=== PATIENT | male | born 1950 | race Caucasian/White ===

== ENCOUNTER 2018-07-07 12:33 | Outpatient (CLI) | payer MEDICARE, OTHER ==
[2018-07-07 18:50] LABS: HB2 TOTAL 18.6 g/dL; HEMOGLOBIN A1C 1.07 g/dL; HEMOGLOBIN A1C % 7.4 % (4.6-6.2)
[2018-07-07 18:52] LABS: CREATININE 0.9 mg/dL (0.6-1.2)
[2018-07-07 18:55] LABS: CREATININE,URINE 143.3 mg/dL; MICROALBUM/CREATININE RATIO,UR 38.4 ug/mg (<30.0); MICROALBUMIN,URINE 5.5 mg/dL (0-300.0)
== END 2018-07-07 23:59 | disposition home or self-care (01) ==
LOC: LAB.F 12:33
PROVIDERS: ATTEND Physician Assistant Medical
DX: E11.9 Type 2 diabetes mellitus without complications (principal)
CPT/HCPCS: 36415; 80048; 82043; 82570; 83036

== ENCOUNTER 2018-08-31 14:39 | Outpatient (CLI) | payer MEDICARE, OTHER ==
--- NOTE | 2018-08-31 16:05 | XRAY Report ---
Reason: FATIGUE,DIZZINESS,EXERTIONAL SHORTNESS OF BREATH Procedure Date: 08/31/2018 Accession Number: [id number] / [id number] Procedure: XR - Chest 2 View X-Ray CPT Code: 96947 FULL RESULT: EXAM: CHEST RADIOGRAPHY EXAM DATE: 08/31/2018 02:49 PM. CLINICAL HISTORY: FATIGUE,DIZZINESS,EXERTIONAL SHORTNESS OF BREATH. COMPARISON: None. TECHNIQUE: 2 views. FINDINGS: Lungs/Pleura: No focal opacities evident. No pleural effusion. No pneumothorax. Normal volumes. Mediastinum: Heart and mediastinal contour are within normal limits for size, subtle calcifications of the aorta noted. Other: None. IMPRESSION: No pulmonary edema or acute air space disease are detected. RADIA
== END 2018-08-31 14:40 | disposition home or self-care (01) ==
LOC: DI 14:39
PROVIDERS: ATTEND Physician Assistant Medical
DX: R53.83 Other fatigue (principal); R42 Dizziness and giddiness; R06.02 Shortness of breath
CPT/HCPCS: 36415; 71046; 80053; 84443; 84484; 85379

== ENCOUNTER 2018-08-31 14:51 | Outpatient (CLI) | payer MEDICARE, OTHER ==
[2018-08-31 15:26] LABS: ALBUMIN 4.2 g/dL (3.2-5.5); ALBUMIN/GLOBULIN RATIO 1.3 (1.0-2.2); BILIRUBIN,TOTAL 0.7 mg/dL (0.2-1.0); CREATININE 1.1 mg/dL (0.6-1.2); TOTAL PROTEIN 7.5 g/dL (6.7-8.2)
== END 2018-08-31 14:52 | disposition home or self-care (01) ==
LOC: LAB 14:51
PROVIDERS: ATTEND Physician Assistant Medical
DX: R53.83 Other fatigue (principal); R42 Dizziness and giddiness; R06.02 Shortness of breath
CPT/HCPCS: 36415; 80053; 84443; 84484; 85379

== ENCOUNTER 2018-10-14 08:00 | Outpatient (CLI) | payer MEDICARE, OTHER ==
[2018-10-14 19:58] LABS: HB2 TOTAL 16.8 g/dL; HEMOGLOBIN A1C 0.86 g/dL; HEMOGLOBIN A1C % 6.8 % (4.6-6.2)
== END 2018-10-14 23:59 | disposition home or self-care (01) ==
LOC: LAB.F 08:00
PROVIDERS: ATTEND Physician Assistant Medical
DX: E11.9 Type 2 diabetes mellitus without complications (principal)
CPT/HCPCS: 36415; 83036

== ENCOUNTER 2019-01-31 13:35 | Outpatient (CLI) | payer MEDICARE, OTHER ==
[2019-01-31 18:27] LABS: HB2 TOTAL 17.2 g/dL; HEMOGLOBIN A1C 0.83 g/dL; HEMOGLOBIN A1C % 6.6 % (4.6-6.2)
--- NOTE | 2019-02-01 16:34 | XRAY Report ---
Reason: COUGH, R05 Procedure Date: 01/31/2019 Accession Number: [id number] / [id number] Procedure: XRS - Chest 2 View X-Ray CPT Code: 63695 FULL RESULT: EXAM: CHEST RADIOGRAPHY 2 VIEWS EXAM DATE: 01/31/2019. CLINICAL HISTORY: Cough. COMPARISON: PA and lateral chest on 08/31/2018. TECHNIQUE: PA and lateral views. FINDINGS: Lungs/Pleura: Normal vasculature. The lungs are clear. No pleural fluid or pneumothorax. Mediastinum: Normal cardiac and mediastinal contours. Bones: Mild degenerative changes of the spine. IMPRESSION: Normal examination. No change from 08/31/2018. RADIA
== END 2019-01-31 13:36 | disposition home or self-care (01) ==
LOC: DI.S 13:35
PROVIDERS: ATTEND Physician Assistant Medical
DX: R05 Cough (principal); E11.9 Type 2 diabetes mellitus without complications
CPT/HCPCS: 36415; 71046; 83036

== ENCOUNTER 2019-04-04 07:58 | Outpatient (CLI) | payer MEDICARE, OTHER ==
--- NOTE | 2019-04-04 12:16 | MRI Report ---
Reason: SHOULDER JOINT PAIN RT Procedure Date: 04/04/2019 Accession Number: [id number] / [id number] Procedure: MRI - Shoulder RT W/O CPT Code: Final Report FULL RESULT: EXAM: RIGHT SHOULDER MRI WITHOUT CONTRAST EXAM DATE: 04/04/2019 08:05 AM. CLINICAL HISTORY: Shoulder joint pain right. COMPARISON: Radiographs 03/28/2019. TECHNIQUE: Multiplanar, multisequence T1-weighted and fluid-sensitive sequences of the shoulder without contrast. Other: None. FINDINGS: Evaluation mildly limited by patient motion and artifact. Acromioclavicular Region: The acromion is type II with bone marrow edema at the undersurface. Mild degenerative change with inferiorly directed osteophytes. The coracoacromial and coracoclavicular ligaments are intact. Moderate heterogeneous subacromial/subdeltoid bursal fluid. Glenohumeral Region: Superior subluxation of the humeral head abutting the acromion. Small joint effusion with synovitis. Diffuse deep partial thickness cartilage loss. Ill-defined edema in the joint capsule. Bone Marrow: No fracture or bone lesion. Labrum: Degenerative fraying throughout with deep partial to full-thickness tear through the free edge posterior superior aspect and partial thickness tears posterior inferior and anterior inferior aspects. Musculature/Rotator Cuff: Full-thickness nearly full width tear supraspinatus tendon. A few fibers anteriorly may remain intact. Free end of the torn fibers at the glenoid, 5 cm from the insertion. Full-thickness nearly full-width tear infraspinatus tendon. A few fibers posteriorly may remain intact. Mild edema in the teres minor tendon. Diffuse deep partial thickness undersurface tear subscapularis tendon measuring 2.3 cm craniocaudal by 2.8 cm transverse. 0.7 cm old ossific fragment in the retracted central fibers. Mild to moderate fatty atrophy supraspinatus, infraspinatus, and subscapularis muscles with associated edema. Mild edema in the teres minor and deltoid muscles. Biceps Tendon: No discernible intact fibers. Other: The subcutaneous tissues are unremarkable. IMPRESSION: 1. Full-thickness nearly full-width tear supraspinatus and infraspinatus tendons with grade 2-3 muscle atrophy. 2. Diffuse deep partial thickness undersurface tear subscapularis tendon with grade 2-3 muscle atrophy. 3. Mild reactive edema and/or strain teres minor tendon and muscle. 4. Complete rupture of the biceps tendon. 5. Degenerative fraying and tearing of the labrum. 6. Mild glenohumeral degenerative change with small joint effusion and synovitis. 7. Moderate subacromial-subdeltoid bursitis. 8. Mild acromioclavicular degenerative change. RADIA
== END 2019-04-04 07:59 | disposition home or self-care (01) ==
LOC: DI 07:58
PROVIDERS: ATTEND Orthopaedic Surgery Sports Medicine
DX: M75.101 Unspecified rotator cuff tear or rupture of right shoulder, not specified as traumatic (principal); R60.0 Localized edema; S46.211A Strain of muscle, fascia and tendon of other parts of biceps, right arm, initial encounter; M19.011 Primary osteoarthritis, right shoulder; M75.51 Bursitis of right shoulder

== ENCOUNTER 2019-04-13 07:03 | Outpatient (CLI) | payer MEDICARE, OTHER ==
[2019-04-13 10:11] LABS: BASOPHILS # (AUTO) 0.1 10^3/uL (0.0-0.1); BASOPHILS % (AUTO) 0.5 %; EOSINOPHILS # (AUTO) 0.2 10^3/uL (0.0-0.7); EOSINOPHILS % (AUTO) 2.2 %; HGB - HEMOGLOBIN 16.7 g/dL (14.0-18.0); LYMPHOCYTES # (AUTO) 2.2 10^3/uL (1.5-3.5); LYMPHOCYTES % (AUTO) 23.5 %; MEAN CORPUSCULAR HEMOGLOBIN 33.1 pg (27.0-31.0); MEAN CORPUSCULAR HGB CONC 32.6 g/dL (32.0-36.0); MEAN CORPUSCULAR VOLUME 101.4 fL (80.0-94.0); MONOCYTES # (AUTO) 0.8 10^3/uL (0.0-1.0); MONOCYTES % (AUTO) 8.2 %; NEUTROPHILS # (AUTO) 6.1 10^3/uL (1.5-6.6); NEUTROPHILS % (AUTO) 65.1 %; PLT - PLATELET COUNT 273 10^3/uL (130-450); RED BLOOD COUNT 5.05 10^6/uL (4.70-6.10); RED CELL DISTRIBUTION WIDTH 13.2 % (12.0-15.0); WHITE BLOOD COUNT 9.4 x10^3/uL (4.8-10.8)
[2019-04-13 10:28] LABS: ALBUMIN 4.2 g/dL (3.2-5.5); ALBUMIN/GLOBULIN RATIO 1.2 (1.0-2.2); BILIRUBIN,TOTAL 0.8 mg/dL (0.2-1.0); CALCIUM 9.5 mg/dL (8.5-10.3); TOTAL PROTEIN 7.8 g/dL (6.7-8.2)
[2019-04-13 10:30] LABS: CREATININE,URINE 117.3 mg/dL; MICROALBUM/CREATININE RATIO,UR 34.1 ug/mg (<30.0)
[2019-04-13 10:36] LABS: HEMOGLOBIN A1C 0.91 g/dL
== END 2019-04-13 07:04 | disposition home or self-care (01) ==
LOC: LAB.S 07:03
PROVIDERS: ATTEND Physician Assistant Medical
DX: I10 Essential (primary) hypertension (principal); E11.9 Type 2 diabetes mellitus without complications
CPT/HCPCS: 36415; 80053; 82043; 82570; 83036; 85025

== ENCOUNTER 2019-05-06 06:58 | Outpatient (CLI) | payer MEDICARE, OTHER ==
[2019-05-06 09:58] LABS: BASOPHILS # (AUTO) 0.1 10^3/uL (0.0-0.1); BASOPHILS % (AUTO) 0.5 %; EOSINOPHILS # (AUTO) 0.2 10^3/uL (0.0-0.7); HGB - HEMOGLOBIN 16.2 g/dL (14.0-18.0); LYMPHOCYTES # (AUTO) 1.9 10^3/uL (1.5-3.5); LYMPHOCYTES % (AUTO) 19.1 %; MEAN CORPUSCULAR HEMOGLOBIN 33.9 pg (27.0-31.0); MEAN CORPUSCULAR HGB CONC 33.3 g/dL (32.0-36.0); MEAN CORPUSCULAR VOLUME 101.9 fL (80.0-94.0); MEAN PLATELET VOLUME 10.7 fL (7.4-11.4); MONOCYTES # (AUTO) 0.8 10^3/uL (0.0-1.0); MONOCYTES % (AUTO) 7.9 %; NEUTROPHILS # (AUTO) 6.9 10^3/uL (1.5-6.6); NEUTROPHILS % (AUTO) 70.2 %; PLT - PLATELET COUNT 309 10^3/uL (130-450); RED BLOOD COUNT 4.78 10^6/uL (4.70-6.10); RED CELL DISTRIBUTION WIDTH 12.9 % (12.0-15.0); WHITE BLOOD COUNT 9.8 x10^3/uL (4.8-10.8)
[2019-05-06 10:15] LABS: ALBUMIN 4.1 g/dL (3.2-5.5); ALBUMIN/GLOBULIN RATIO 1.2 (1.0-2.2); BILIRUBIN,TOTAL 0.8 mg/dL (0.2-1.0); CALCIUM 9.8 mg/dL (8.5-10.3); TOTAL PROTEIN 7.4 g/dL (6.7-8.2)
== END 2019-05-06 06:59 | disposition home or self-care (01) ==
LOC: LAB.S 06:58
PROVIDERS: ATTEND Physician Assistant Medical
DX: I10 Essential (primary) hypertension (principal)
CPT/HCPCS: 36415; 80053; 85025

== ENCOUNTER 2019-05-18 10:46 | Inpatient (IN) | payer MEDICARE, OTHER ==
[2019-05-18] MEDS ORDERED: CEFAZOLIN SODIUM IN 0.9 % NACL 2 GM/100 ML BAG IV ONE (10:59)
[2019-05-18] MEDS ORDERED: LACTATED RINGERS 1,000 ML IV ONE (11:04)
--- NOTE | 2019-05-18 11:46 | ANESTHESIA ---
Pre-Anesthesia VS, & Labs - Diagnosis right shoulder rotator cuff tear - Procedure right shoulder arthroscpic vs open rotator cuff repair possible biceps tenodesis Vital Signs: Temp Pulse Resp BP Pulse Ox 36.5 C 86 18 157/85 H 99 05/18/19 11:08 05/18/19 11:08 05/18/19 11:08 05/18/19 11:08 05/18/19 11:08 Height 5 ft 9 in Weight (kg) 94.9 kg - NPO >8 hours Last Fluid Intake: 0830: 2 oz apple juice - Lab Results Current Lab Results: Laboratory Tests 05/18/19 11:24: POC Whole Bld Glucose 148 H Lab results reviewed: Yes Home Medications and Allergies Home Medications: Ambulatory Orders Betamethasone Dipropionate 1 applic TP BID PRN 05/09/19 Econazole Nitrate 1 applic TOP DAILY PRN 05/09/19 Insulin Glargine [Lantus Solostar] 40 unit SQ DAILY 05/09/19 Insulin Lispro [Humalog Kwikpen U-100] 25 unit SUBQ AC 05/09/19 Liraglutide [Victoza 2-Sky] 1.8 mg SQ DAILY 05/09/19 Metformin HCl 1,000 mg PO BID 05/09/19 Potassium Citrate [Potassium Citrate ER] 10 meq PO BID 05/09/19 Simvastatin 10 mg PO QPM 05/09/19 Telmisartan 40 mg PO DAILY 05/09/19 Triamcinolone Acetonide 1 applic TP BID 05/09/19 Valacyclovir HCl [Valacyclovir] 1,000 mg PO DAILY 05/09/19 Betamethasone Dipropionate 1 applic TP BID PRN 05/09/19 Econazole Nitrate 1 applic TOP DAILY PRN 05/09/19 Insulin Glargine [Lantus Solostar] 40 unit SQ DAILY 05/09/19 Insulin Lispro [Humalog Kwikpen U-100] 25 unit SUBQ AC 05/09/19 Liraglutide [Victoza 2-Sky] 1.8 mg SQ DAILY 05/09/19 Metformin HCl 1,000 mg PO BID 05/09/19 Potassium Citrate [Potassium Citrate ER] 10 meq PO BID 05/09/19 Simvastatin 10 mg PO QPM 05/09/19 Telmisartan 40 mg PO DAILY 05/09/19 Triamcinolone Acetonide 1 applic TP BID 05/09/19 Valacyclovir HCl [Valacyclovir] 1,000 mg PO DAILY 05/09/19 Allergies/Adverse Reactions: Allergies Allergy/AdvReac Type Severity Reaction Status Date / Time ampicillin Allergy Rash Verified 05/09/19 09:16 Anes History & Medical History - Anesthetic History Anesthesia Complications: reports: No previous complications - Medical History Cardiovascular: reports: Hypertension, High cholesterol Pulmonary: reports: None, Other (snores) Gastrointestinal: reports: None Urinary: reports: Kidney stones Neuro: reports: None Musculoskeletal: reports: Chronic back pain Endocrine/Autoimmune: reports: Type 2 diabetes Blood Disorders: reports: None Skin: reports: None Smoking Status: Former smoker (quit 15 years ago) Psychosocial: reports: No issues indicated - Surgical History General: Colonoscopy, Other Urologic: Ureterolithotomy (stones) Results - EKG Results EKG Comparison: Reviewed EKG, Other (cardiac clearance in 2019, no wall motion abnormalities with ECHO) Exam General: Alert, Oriented x3, Cooperative, No acute distress Dental: WNL Mouth Openin Fingerbreadth Neck Mobility: Normal Mallampati classification: IV Thyromental Distance: 4-6 cm Respiratory: Lungs clear, Normal breath sounds, No respiratory distress, No accessory muscle use Cardiovascular: Regular rate, Normal S1, Normal S2, No murmurs Mental/Cognitive Status: Alert/Oriented X3, Normal for patient Plan Anesthesia Type: General, Interscalene Block (right) Regional Block: Per Surgeon's request for Post Op pain control Consent for Procedure(s) Verified and Reviewed: Yes Code Status: Attempt Resuscitation ASA classification: 2-Mild systemic disease Is this case an emergency?: No
[2019-05-18] MEDS ORDERED: fentaNYL 100 MCG/2 ML VIAL ONE (12:55)
[2019-05-18] MEDS ORDERED: MIDAZOLAM 2 MG/2 ML VIAL ONE (12:55)
[2019-05-18] MEDS ORDERED: EPINEPHrine 1 MG/ML AMP ONE (13:07)
[2019-05-18] MEDS ORDERED: BUPIVACAINE 0.5% PF 30 ML VIAL ONE (13:08)
--- NOTE | 2019-05-18 13:27 | ANESTHESIA PROCEDURE NOTE ---
Diagnosis: Right torn rotator cuff Procedure: Right ISB Consent for Procedure(s) Verified and Reviewed: Yes Height and Weight: Height 5 ft 9 in Weight (kg) 94.9 kg Vital Signs: Temp Pulse Resp BP Pulse Ox 36.5 C 86 18 157/85 H 99 05/18/19 11:08 05/18/19 11:08 05/18/19 11:08 05/18/19 11:08 05/18/19 11:08 Allergies ampicillin Allergy (Verified 05/09/19 09:16) Rash Requesting Provider: Darshana Location: Right shoulder ASA classification: 2-Mild systemic disease Is this case an emergency?: No Anes. Monitoring and Equipment: Non-invasive BP, Pulse oximetery Anes. Procedure Start Time: 13:00 Anes. Procedure Stop Time: 13:07 Procedure Notes: After time out, patient's right neck was prepped with chlorohexadine. The right brachial plexus was imaged using ultrasound and a blunted 22G stimiplex needle was advanced towards the nerve sheath. A total of 30ml of 0.5% ropivicaine with 4mg decadron was injected around the sheath with adequate spread noted. A total of 2mg versed and 100mcg fentanyl were given IV for patient comfort during procedure. Patient tolerated well, Full evaluation is pending.
[2019-05-18] MEDS ORDERED: BUPIVACAINE 0.5% PF 30 ML VIAL INFIL ONE (14:40)
[2019-05-18 15:42] LABS: BASOPHILS # (AUTO) 0.1 10^3/uL (0.0-0.1); BASOPHILS % (AUTO) 0.5 %; EOSINOPHILS # (AUTO) 0.2 10^3/uL (0.0-0.7); EOSINOPHILS % (AUTO) 1.1 %; HGB - HEMOGLOBIN 13.6 g/dL (14.0-18.0); LYMPHOCYTES # (AUTO) 6.4 10^3/uL (1.5-3.5); MEAN CORPUSCULAR HGB CONC 32.9 g/dL (32.0-36.0); MEAN CORPUSCULAR VOLUME 103.5 fL (80.0-94.0); MEAN PLATELET VOLUME 9.9 fL (7.4-11.4); MONOCYTES % (AUTO) 5.9 %; NEUTROPHILS # (AUTO) 8.5 10^3/uL (1.5-6.6); NEUTROPHILS % (AUTO) 50.8 %; PLT - PLATELET COUNT 197 10^3/uL (130-450); RED CELL DISTRIBUTION WIDTH 12.9 % (12.0-15.0); WHITE BLOOD COUNT 16.7 x10^3/uL (4.8-10.8)
[2019-05-18 15:47] LABS: INR 1.3 (0.8-1.2); PT - PROTHROMBIN TIME 14.2 secs (9.9-12.6)
[2019-05-18 15:49] LABS: CALCIUM 7.9 mg/dL (8.5-10.3); CREATININE 0.9 mg/dL (0.6-1.2)
[2019-05-18 16:20] LABS: ABG BASE EXCESS -7.4 mmol/L (-2.0-3.0); ABG HCO3 18.9 mmol/L (22.0-26.0); ABG OXYGEN SATURATION 92 % (94-98); ABG PCO2 41 mmHg (34-45); ABG PH 7.28 (7.35-7.45); ABG PO2 72 mmHg (80-100); ABG TCO2 20.2 MMOL/L (21.0-29.0)
[2019-05-18 16:35] LABS: PLATELET ESTIMATE, MANUAL NORMAL (130-450,000) (NORMAL); PLATELET MORPHOLOGY NORMAL APPEARANCE (NORMAL); RBC MORPHOLOGY (MULTIPLE) 1+ ANISOCYTOSIS (NORMAL)
[2019-05-18 16:36] LABS: DIFFERENTIAL COMMENT MANUAL=AUTO DIFF
[2019-05-18] MEDS ORDERED: fentaNYL 2,500 MCG in SODIUM CHLORIDE 0.9% 200 ML IV SCH (17:00)
[2019-05-18] MEDS: PROPOFOL 1000 MG/100 ML 100 ML IV SCH ×3 (17:13→23:39)
--- NOTE | 2019-05-18 17:32 | HISTORY & PHYSICAL EXAMINATION ---
Chief Complaint - Chief Complaint Chief Complaint: Cardiac arrest History of Present Illness - Admitted From Admitted From:: OR - History Obtained From Records Reviewed: Yes History obtained from: Anesthesia, Orthopedic surgeon Exam Limitations: Patient is intubated. - History of Present Illness HPI Comment/Other: This is a 69-year-old male with a past medical history significant for hypertension, diabetes who was taken to the operating room today for arthroscopic surgery of the right shoulder for possible rotator cuff repair. About 1 hour into the operation, the patient suddenly went into atrial fibrillation with heart rates in the 170s and a blood pressure of 200. His heart rate was previously stable in the 70s and his blood pressure had been in the 90s systolic. He was given 5 of Pressor IV as well as 30 mg of esmolol. He was also given 100 mcg of fentanyl. His heart rate began to improve but then it dipped into the 40s and he became hypotensive. He became to look very pale and he unfortunately lost a pulse. CPR was initiated and a CODE BLUE was called. He was given half milligram of epinephrine and after 2 minutes of CPR, pulse was palpable. He was hypotensive with a systolic blood pressure in the 60s and his heart rate was in the 140s and appeared to be irregular with concern for atrial fibrillation. He was given 200 mics of Samson-Synephrine given the hypotension. His blood pressure improved to the 140s systolic. Repeat EKG after return of spontaneous circulation showed ST depressions in V2 to V6 which are new compared to prior EKG. A central line and arterial line were placed in the operating room and the patient was then transferred to the intensive care unit for further management. History - Past Medical History Cardiovascular: reports: Hypertension, High cholesterol Respiratory: reports: None, Other (snores) Neuro: reports: None Endocrine/Autoimmune: reports: Type 2 diabetes GI: reports: None : reports: Kidney stones HEENT: reports: Chronic vision loss, Other Psych: reports: None Musculoskeletal: reports: Chronic back pain Derm: reports: None MRSA Hx?: No - Past Surgical History General: reports: Colonoscopy, Other - Family & Social History Family History Comment/Other: Unable to obtain at this moment as patient is intubated. Social History Notes: Unable to obtain at this moment as patient is intubated. Meds/Allgy - Home Medications Home Medications: Ambulatory Orders Medication Instructions Recorded Confirmed Betamethasone Dipropionate 1 applic TP BID PRN 05/09/19 05/09/19 Econazole Nitrate 1 applic TOP DAILY PRN 05/09/19 05/18/19 Insulin Glargine [Lantus Solostar] 40 unit SQ DAILY 05/09/19 05/18/19 Insulin Lispro [Humalog Kwikpen 25 unit SUBQ AC 05/09/19 05/09/19 U-100] Liraglutide [Victoza 2-Sky] 1.8 mg SQ DAILY 05/09/19 05/18/19 Metformin HCl 1,000 mg PO BID 05/09/19 05/18/19 Potassium Citrate [Potassium 10 meq PO BID 05/09/19 05/18/19 Citrate ER] Simvastatin 10 mg PO QPM 05/09/19 05/18/19 Telmisartan 40 mg PO DAILY 05/09/19 05/18/19 Triamcinolone Acetonide 1 applic TP BID 05/09/19 05/18/19 Valacyclovir HCl [Valacyclovir] 1,000 mg PO DAILY 05/09/19 05/18/19 - Allergies Allergies/Adverse Reactions: Allergies Allergy/AdvReac Type Severity Reaction Status Date / Time ampicillin Allergy Rash Verified 05/09/19 09:16 Review of Systems - All Other Systems All Other Systems: reports: Other (Unable to obtain as patient is intubated.) Prior Level of Functionality: Independent with his ADLs. Exam - Vital Signs Reviewed Vital Signs: Yes Vital Signs: Vital Signs x48h Temp Pulse Resp BP Pulse Ox 05/18/19 11:08 36.5 C 86 18 157/85 H 99 - Physical Exam General Appearance: positive: Other (He is now sedated but he was moving all 4 extremities after return of spontaneous circulation.) Eyes Bilateral: positive: Conjunctivae nml, Other (Pupils are constricted and sluggish but reactive to light.) ENT: positive: Other (ET tube in place.) Neck: positive: Nml inspection Respiratory: positive: Rales. negative: Wheezes Cardiovascular: positive: Regular rate & rhythm, No murmur. negative: Tachycardia, Bradycardia, Systolic murmur, Diastolic murmur Abdomen: positive: Non-tender, No distention. negative: Tenderness Skin: positive: No rash, Warm, Dry Extremities: positive: No pedal edema, Other (Resting in place over the right shoulder. A sling is also present.) Neurologic/Psychiatric: positive: Other (He is sedated and unable to follow commands.) Conclusion/Plan - Problem List (1) Cardiac arrest Conclusion/Plan: He had a PEA arrest intraoperatively and return spontaneous circulation was obt ained approximately 2 minutes after the arrest. This may have been secondary to ischemia given his EKG shows new ST depressions. Other concern will be for possible pulmonary embolism. He is fortunately moving all 4 extremities and therefore there is no role for hypothermia protocol at the moment. He remains hypotensive and has been started on levo fed. At this time, we will obtain a stat echocardiogram to evaluate his LV function. We will obtain a CTA of the chest to evaluate for pulmonary embolism if his echocardiogram is suggestive of right heart strain. We will continue to trend his troponin and EKG. Monitor on telemetry. If cardiac work-up is suggestive of ischemia, will transfer to high level of care for cardiology evaluation. I did speak with orthopedic surgery and they feel the patient can be anticoagulated if necessary. (2) Paroxysmal atrial fibrillation Conclusion/Plan: He went into atrial fibrillation with heart rate in the 140s intraoperatively. He has no prior history of atrial fibrillation. Was given metoprolol and esm olol and then became bradycardic and that is when he went into PEA arrest. EKG after transportation circulation shows a sinus rhythm. I did give him 150 mg of amiodarone initially after return respiratory circulation as he appeared to be in atrial fibrillation. He is now in sinus rhythm with heart rates in the 80s. Continue to monitor on telemetry and obtain echocardiogram. Trend troponin. (3) Hypotension Conclusion/Plan: He is hypotensive requiring pressor support with Levophed. Concern is for cardiogenic shock given the cardiac arrest as well as new EKG changes. We will start him on Levophed. 10 a stat echocardiogram and trend troponin. Continue to monitor on telemetry. (4) Abnormal EKG Conclusion/Plan: He does have new EKG changes with ST depressions in leads V2 through V6. Initial troponin is 19. We will continue to trend troponin and EKG. If there is a large jump in troponin, will start on heparin and transfer for cardiology evaluation. (5) Type 2 diabetes mellitus Conclusion/Plan: He is on glargine and lispro at home as well as Victoza and metformin. We will place him on sliding scale for the time being and make him n.p.o. Will resume Lantus at a lower dose if he remains hyperglycemic. (6) Status post arthroscopy of right shoulder Conclusion/Plan: He is status post arthroscopy of the right shoulder on April 28. His rotator cuff was not repaired. He underwent subacromial decompression. The case was ended abruptly given the atrial fibrillation and subsequent cardiac arrest. Will use fentanyl as needed for pain control. - Lab Results Lab results reviewed: Yes Fish Bones: 05/19/19 06:00 05/19/19 06:00 - EKG Results EKG Interpreted Independently: Yes EKG Findings: EKG shows ST depressions in V2 to V6. Rhythm at the moment appears to be sinus as P waves are present. Core Measures - Anticipated LOS I expect patient to be DC'd or transferred within 96 hours.: Yes - Issues Hospital Issues and Management Plan: She 9-year-old male had a cardiac arrest while in the operating room for arthroscopic surgery of the right shoulder. Will admit to ICU obtain echo and trend troponin. Obtain CTA to evaluate from a pulmonary embolism. Will likely require transfer to higher level of care. - DVT/VTE - Prophylaxis VTE/DVT Device ordered at admit?: Yes VTE/DVT Prophylaxis med ordered at admit?: No
--- NOTE | 2019-05-18 17:50 | CONSULTATION NOTE ---
Consultation Report: Assisted with resuscitation of patient in shock. On my arrival to OR, patient was in afib with RVR (rate of 1130-140). Patient's blood pressure had increased to 220/110 range from 90's systolic. Oxygen saturation was 94%. FiO2 increased to 100%. Patient was treated with 30mg esmolol and 5mg metoprolol in divided doses by Florina Valdivia CRNA. Also 100mcg of fentanyl was given IV. Patient's heart rate decreased into the 90s with blood pressure returning to the 100 systolic range. Patient's heart rate continued to decrease, with return to intermittent sinus rhythm with rate in the 40-50 BPM. Patient became hypotensive with BP in the 50s systolic. It was decided to terminate the surgical procedure due to patient becoming hemodynamically unstable. Pressors were given by Florina Valdivia and the site was closed by the surgeon. Patient was turned supine and chest compressions started as ETCO2 was low, unable to obtain BP an HR remaining in the 40s, indicating a low perfusion state. 0.5mg of epinephrine was given and patient had improvement of vital signs. The hospitalist was paged and was at the bedside. Lab work was drawn, as well as EKG obtained. Patient returned to [facility] with RVR and on advice from hospitalist, 150mg of amiodarone was given IV. A 20G radial arterial line was started to the left wrist and central line was placed by Florina Valdivia CRNA. Patient's oxygen saturation remained low(88-90) despite 100% O2 and assisted ventilations. [place] frothy sputum was noted to be in the endotracheal tube and was suctioned. Patient was taken to the ICU in fair condition. Spoke with patient's and explained patient had become unstable during surgery. Hospitalist to arrange transfer to tertiary facility with cardiac services.
--- NOTE | 2019-05-18 17:59 | ANESTHESIA PROCEDURE NOTE ---
Anesth Central Line Template - Central Line Central Line Preparation: Unable to obtain consent Central line location: Left IJ Central line type: Triple lumen Central line aftercare: Chlorhexidine disc placed, Secured (sutured), Bundle checklist complete (central line place post cardiac arrest in OR)
--- NOTE | 2019-05-18 18:01 | ANESTHESIA PROCEDURE NOTE ---
Diagnosis: s/p cardiac arrest Procedure: arterial line Consent for Procedure(s) Verified and Reviewed: No Height and Weight: Height 5 ft 9 in Weight (kg) 94.9 kg Vital Signs: Temp Pulse Resp BP Pulse Ox 36 C L 82 13 99/65 95 05/18/19 16:50 05/18/19 17:45 05/18/19 17:45 05/18/19 17:45 05/18/19 17:15 Allergies ampicillin Allergy (Verified 05/09/19 09:16) Rash Requesting Provider: Darshana Location: OR ASA classification: 4-Incapacitating disease Is this case an emergency?: Yes (post cardiac arrest) Anes. Monitoring and Equipment: Non-invasive BP, Pulse oximetery Anes. Procedure Start Time: 15:40 Anes. Procedure Stop Time: 15:44 Procedure Notes: left radial arterial line placed 20 g, to pressure bag , good waveform.
[2019-05-18] MEDS ORDERED: IOVERSOL 320 100 ML VIAL IVP ONE ×2 (18:02→21:07)
[2019-05-18] MEDS: SODIUM CHLORIDE FLUSH 0.9% 10 ML SYRINGE IVP SCH (18:12)
[2019-05-18] MEDS ORDERED: POTASSIUM CHLOR 20 MEQ/100 ML 20 MEQ/100 ML BAG IV ONE (18:30)
--- NOTE | 2019-05-18 18:39 | XRAY Report ---
Reason: Line placement. Hypoxia. Procedure Date: 05/18/2019 Accession Number: [id number] / [id number] Procedure: XR - Chest for Line Placement CPT Code: Addended Final Report FULL RESULT: EXAM: CHEST RADIOGRAPHY EXAM DATE: 05/18/2019 05:42 PM. CLINICAL HISTORY: Line placement. Hypoxia. COMPARISON: SHOULDER 3 VIEW RT 03/28/2019 9:31 AM CHEST 2 VIEW 01/31/2019 1:56 PM CHEST 2 VIEW 08/31/2018 2:42 PM. TECHNIQUE: 1 view. FINDINGS: Suboptimal positioning. Endotracheal tube is in the low thoracic trachea about 1.5 cm above the ting. Left internal jugular catheter courses inferiorly along the left mediastinum and projects over the aorta. Heart may be enlarged. There are left greater than right perihilar opacities. No pleural effusion or pneumothorax visualized. IMPRESSION: 1. Left central catheter projects over the aorta. Arterial position is not excluded. 2. Endotracheal tube in the low thoracic trachea. 3. Left greater than right perihilar opacities could represent edema, hemorrhage, infection. The call report notification system was initiated by Dr. Roge Ceballos at 06:35 PM on 05/18/2019. ADDENDUM: 05/18/19 18:42 The above call report findings were discussed with Kana Montes by Dr. Roge Ceballos at 06:42 PM on 05/18/2019.
--- NOTE | 2019-05-18 18:51 | XRAY Report ---
Reason: OG placed Procedure Date: 05/18/2019 Accession Number: [id number] / [id number] Procedure: XR - No-Charge 1V Abdomen CPT Code: 43132 Final Report FULL RESULT: EXAM: ABDOMEN RADIOGRAPHY EXAM DATE: 05/18/2019 06:39 PM. CLINICAL HISTORY: OG placed. COMPARISON: CHEST FOR LINE PLACEMENT 05/18/2019 5:22 PM. TECHNIQUE: 1 view. FINDINGS IMPRESSION: Enteric tube projects in the stomach, which is mildly distended. The bowel gas pattern is otherwise unremarkable where visualized.
[2019-05-18] MEDS: INSULIN REGULAR HUMAN 300 UNIT/3 ML VIAL SUBQ SCH (18:59)
[2019-05-18] MEDS ORDERED: INSULIN REGULAR HUMAN 300 UNIT/3 ML VIAL SUBQ SCH (19:00)
[2019-05-18] MEDS ORDERED: SODIUM CHLORIDE 0.9% 500 ML IV PRN (19:00)
--- NOTE | 2019-05-18 19:34 | IMMEDIATE POSTOPERATIVE NOTE ---
Immediate Postoperative Note - Procedure Note Procedure Date: 05/18/19 Pre-Op Diagnosis: R shoulder rotator cuff tear, subacromial impingement, long head biceps inj Procedure: Right shoulder arthroscopic subacromial decompression, no rotator cuff repair performed as surgery aborted secondary to cardiovascular event. Please see further information documented separately. Post-Op Diagnosis: Same, cardiac arrythmia Primary Surgeon: Carmelo Gilliland Ultrasound Specialist: none Anesthesia Type: General ET tube, Regional block Findings: Downsloping anterior aspect of acromion converted type I acromion, large supraspinatus infraspinatus tear full-thickness. Absent biceps intra-articular. Some fraying but grossly intact subscapularis. Chondromalacia grade 1-2 with labral fraying intra-articular. Complications: Other (Patient had cardiac arrhythmia intraoperatively- please see anesthesia report for further details) Estimated Blood Loss (in cc): 50 Drains, Catheters, Devices: none Specimens and Cultures: none Plan of Care: Patient had right shoulder subacromial decompression performed. Surgery was aborted secondary to cardiovascular event and code. Patient stabilized and transferred to ICU. Patient had EKG, ABG, labs drawn. Patient would have STAT echocardiogram and potential further testing. Please see anesthesia and hosptalist documentation for further details.
[2019-05-18 19:41] LABS: ABG PH 7.34 (7.35-7.45)
[2019-05-18 19:42] LABS: ABG BASE EXCESS -4.6 mmol/L (-2.0-3.0); ABG HCO3 20.7 mmol/L (22.0-26.0); ABG OXYGEN SATURATION 99 % (94-98); ABG PCO2 39 mmHg (34-45); ABG TCO2 21.9 MMOL/L (21.0-29.0)
[2019-05-18 19:43] LABS: ALLEN TEST POSITIVE
[2019-05-18 19:48] LABS: ABG PO2 266 mmHg (80-100); VBG PCO2 50.8 mmHg (41-51); VBG PH 7.308 (7.31-7.41); VBG PO2 50.4 mmHg (25-47); VBG TOTAL CO2 26.4 mmol/L (24-29)
--- NOTE | 2019-05-18 20:51 | CT Report ---
Reason: Cardiac arrest. Right heart strain on Echo. R/O PE Procedure Date: 05/18/2019 Accession Number: [id number] / [id number] Procedure: CT - ANGIO CHEST W/WO CPT Code: Final Report FULL RESULT: EXAM: CT ANGIOGRAM CHEST EXAM DATE: 05/18/2019 08:19 PM. CLINICAL HISTORY: Cardiac arrest. Right heart strain on Echo. Rule out pulmonary embolism. COMPARISON: CHEST FOR LINE PLACEMENT 05/18/2019 6:13 PM. TECHNIQUE: Routine helical imaging was performed through the chest in the pulmonary arterial phase. IV Contrast: Opti 320 80 mL. Reconstructions: Coronal 3-D MIP reconstructions.Sagittal and coronal. In accordance with CT protocol optimization, one or more of the following dose reduction techniques were utilized for this exam: automated exposure control, adjustment of mA and/or KV based on patient size, or use of iterative reconstructive technique. FINDINGS: Pulmonary Arteries: Diagnostic quality: Adequate through the segmental arteries. No evidence for acute or chronic pulmonary emboli. RV/LV is within normal limits. There is no interventricular septal bowing. There is no reflux of contrast material in the IVC. Lungs/Pleura: There is extensive left lower lung airspace consolidation with patchy opacities and septal thickening throughout the left upper lobe. There is some right lower lobe consolidation. Bilateral lower lobe air bronchograms seen. There is no pneumothorax. Mediastinum: Normal heart size. Coronary artery calcification seen. Tip of endotracheal tube within 1 cm of the ting. A nasogastric tube is also visualized which extends to the distal stomach. Thoracic Aorta: Unremarkable. Upper Abdomen: The liver demonstrates decreased attenuation. Other: None. IMPRESSION: 1. No pulmonary embolism. 2. Bilateral lower lobe consolidation and/or atelectasis. There is also fairly extensive left upper lobe airspace disease which may be secondary to infection or edema. 3. Coronary artery calcifications. 4. Fatty liver. 5. Endotracheal tube tip within 1 cm of the ting and may be withdrawn 2-3 cm. RADIA
[2019-05-18] MEDS ORDERED: ENOXAPARIN 100 MG/ML SYRINGE SUBQ SCH (20:58)
[2019-05-18] MEDS ORDERED: METOPROLOL 5 MG/5 ML VIAL IVP SCH (21:00)
[2019-05-18] MEDS: SODIUM CHLORIDE FLUSH 0.9% 10 ML SYRINGE IVP PRN ×2 (21:41→21:42)
[2019-05-18] MEDS ORDERED: AMIODARONE 150 MG/100 ML 100 ML IV ONE (22:02)
--- NOTE | 2019-05-18 22:10 | PROVIDER PROGRESS NOTE ---
General Internist Note - General Internist Note General Internist Note: May 18, 2019 22:06 I am the hospitalist covering for the evening. I received signout on this unfortunate gentleman who had a cardiac event during an elective shoulder procedure. His main problem was sudden atrial fibrillation and then sudden lack of pulse. It was felt that he may have had a pulmonary embolus because of right ventricular dysfunction. This was seen on echo. CT pulmonary angiogram has been negative. His troponins are gone from 19 to 440. His EKG, immediately after the event, is sinus rhythm with poor R wave progression. And T wave inversion. He also had minimal ST depression in V2 through V6. With the second troponin being 440, I repeated the EKG and he continues to be in sinus rhythm. The ST depression has almost completely resolved and he has T wave inversions in the lateral leads. I have spoken to cardiology on-call at [facility]. The patient's identified [facility] as the hospital she wanted him to go to if he needed to be transferred. Dr. Jer Estrada @ [phone] graciously guided me through our management. The patient continues to be intubated, on propofol. He is on fentanyl and propofol and I think his blood pressure is low because of that and he is on 1 to 2 mcg of Levophed. After reviewing the case with him, Dr. Estrada feels that the patient had a primary event of atrial fibrillation causing rapid ventricular response, cardiac strain, and the bump in troponins. The fact that he was also resuscitated may have also caused a bump in troponins. Nevertheless, he wants me to treat the patient as he may be having an non-ST elevation [place]. He is currently on Lovenox and Lopressor. Dr. Estrada would like me to switch him to IV heparin in the morning, loading with amiodarone tonight. Extubate the patient as soon as possible. That way we can get rid of the Levophed and propofol. When the patient is able to take p.o., transition amiodarone to 200 mg a day for at least the next 2 weeks. Continue heparin for 48 hours. Statin in the am. ASA in the am when he can take po. In the outpatient setting he would be a candidate for a cardiac stress test. However, if the patient continues to have a rise in troponins, to call him back and let them know. They may accept the patient in transfer to [facility] if the patient is transitioning to a true non-ST elevation [place]. His is at the bedside. I have discussed all of this with her. She is amenable to him remaining here and is relieved that she does not have to go anywhere at this moment in time. She is understandably emotionally exhausted at today's events. Currently nursing is bringing down his propofol for me. He is on 2 mcg of Levophed. Pulse is 70, sinus, and systolic is 146 at this moment in time. He is intubated. FiO2 is 60% with 99% O2 sat.
[2019-05-18] MEDS ORDERED: AMIODARONE 360 MG/200 ML 200 ML IV ONE (23:30)
[2019-05-19] MEDS: INSULIN REGULAR HUMAN 300 UNIT/3 ML VIAL SUBQ SCH ×3 (00:05→10:56)
[2019-05-19] MEDS: SODIUM CHLORIDE FLUSH 0.9% 10 ML SYRINGE IVP SCH ×2 (01:23→08:36)
[2019-05-19] MEDS ORDERED: MORPHINE 2 MG/ML CARPUJECT IVP PRN (02:41)
[2019-05-19] MEDS ORDERED: PHENOL THROAT SPRAY 177 ML MM PRN (03:24)
[2019-05-19] MEDS ORDERED: AMIODARONE 360 MG/200 ML 200 ML IV SCH (05:30)
[2019-05-19 06:19] LABS: BASOPHILS % (AUTO) 0.2 %; EOSINOPHILS % (AUTO) 0.1 %; HGB - HEMOGLOBIN 13.4 g/dL (14.0-18.0); LYMPHOCYTES # (AUTO) 1.5 10^3/uL (1.5-3.5); LYMPHOCYTES % (AUTO) 9.2 %; MEAN CORPUSCULAR HEMOGLOBIN 34.2 pg (27.0-31.0); MEAN CORPUSCULAR HGB CONC 33.6 g/dL (32.0-36.0); MEAN CORPUSCULAR VOLUME 101.8 fL (80.0-94.0); MEAN PLATELET VOLUME 9.6 fL (7.4-11.4); MONOCYTES # (AUTO) 1.4 10^3/uL (0.0-1.0); MONOCYTES % (AUTO) 8.2 %; NEUTROPHILS # (AUTO) 13.4 10^3/uL (1.5-6.6); NEUTROPHILS % (AUTO) 81.5 %; PLT - PLATELET COUNT 245 10^3/uL (130-450); RED BLOOD COUNT 3.92 10^6/uL (4.70-6.10); RED CELL DISTRIBUTION WIDTH 13.2 % (12.0-15.0); WHITE BLOOD COUNT 16.5 x10^3/uL (4.8-10.8)
[2019-05-19 06:32] LABS: ALBUMIN 3.3 g/dL (3.2-5.5); BILIRUBIN,DIRECT 0.1 mg/dL (0.1-0.5); BILIRUBIN,TOTAL 0.4 mg/dL (0.2-1.0); CALCIUM 8.3 mg/dL (8.5-10.3); MAGNESIUM 1.6 mg/dL (1.7-2.8); PHOSPHORUS 3.5 mg/dL (2.5-4.6)
[2019-05-19] MEDS ORDERED: HEPARIN 25000UNITS/500ML (D5W) 25,000 UNIT/500 ML BAG IV SCH (07:00)
[2019-05-19] MEDS ORDERED: PANTOPRAZOLE 40 MG VIAL IVP SCH (07:00)
[2019-05-19] MEDS ORDERED: LIDOCAINE-MPF 2% 5 ML VIAL IM ONE (09:27)
[2019-05-19] MEDS ORDERED: ACETAMINOPHEN 1,000 MG/100 ML 100 ML IV ONE (09:27)
[2019-05-19] MEDS ORDERED: ROCURONIUM 50 MG/5 ML VIAL IVP ONE (09:27)
[2019-05-19] MEDS ORDERED: ESMOLOL 100 MG/10 ML VIAL IVP ONE (09:27)
[2019-05-19 09:28] LABS: HGB - HEMOGLOBIN 13.1 g/dL (14.0-18.0); MEAN CORPUSCULAR HEMOGLOBIN 33.1 pg (27.0-31.0); MEAN CORPUSCULAR HGB CONC 32.9 g/dL (32.0-36.0); MEAN CORPUSCULAR VOLUME 100.5 fL (80.0-94.0); RED BLOOD COUNT 3.96 10^6/uL (4.70-6.10); RED CELL DISTRIBUTION WIDTH 13.2 % (12.0-15.0); WHITE BLOOD COUNT 17.7 x10^3/uL (4.8-10.8)
--- NOTE | 2019-05-19 10:16 | OPERATIVE REPORT ---
DATE OF SERVICE: 05/18/2019 Physician: Jorge Gilliland MD PREOPERATIVE DIAGNOSES: 1. Right shoulder rotator cuff tear. 2. Subacromial impingement. 3. Long head biceps rupture. POSTOPERATIVE DIAGNOSES: 1. Right shoulder rotator cuff tear. 2. Subacromial impingement. 3. Long head biceps rupture. PROCEDURES PERFORMED: Right shoulder arthroscopic subacromial decompression, no rotator cuff repair performed - surgery aborted secondary to cardiovascular event. ADDITIONAL POSTPROCEDURE DIAGNOSIS: Cardiac arrhythmia. SURGEON: Jorge Gilliland MD ANESTHESIOLOGY PROVIDERS: Evy Valdivia CRNA, and Bib Hughes CRNA. ANESTHESIA TYPE: General endotracheal anesthesia as well as right side ultrasound-guided regional block. INTRAOPERATIVE FINDINGS: 1. Anterior downslope acromion converted to type 1 acromion. 2. Large supraspinatus and infraspinatus full-thickness rotator cuff tear. 3. Absent intraarticular biceps. 4. 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 5. Subscapularis with minimal fraying. ESTIMATED BLOOD LOSS: 50 mL FLUIDS: Please see anesthesia report. INTRAOPERATIVE COMPLICATIONS: The patient had intraoperative cardiac event and surgery is aborted, CODE is performed. HISTORY OF PRESENT ILLNESS AND INDICATIONS: Patient is a gentleman, 69-year-old, who had a longstanding rotator cuff tear that is indicated for operative treatment, had risks, benefits, and alternatives of operative and nonoperative treatment reviewed with him previously. He had appropriate preanesthetic medical and anesthesia evaluation/optimization. He is indicated for operative treatment. The patient had risks, benefits and alternatives again highlighted in the preoperative care unit. Patient and patient's 's questions are answered. They verbalized understanding of the above and verbalized the wish to proceed with operative treatment. DESCRIPTION OF PROCEDURE: On 05/18/2019, the patient is identified in the preoperative care unit. He ultimately identified his right shoulder as the operative site. This is signed by the operating surgeon. Patient received preoperative weight-based IV antibiotics. He has had an ultrasound-guided regional block anesthesia of the right shoulder and right upper extremity and then he is brought to the operating room, placed supine. General anesthesia is administered, then he is placed in a carefully positioned left side down, lateral decubitus position with appropriately placed axillary roll to avoid encumbrance of the axilla. Down leg is gel padded. Beanbag positioner is used. Head, neck and extremities are placed in anatomically comfortable and safe position to avoid peripheral nerve stretch compression. At this time, surgical pause identifies right shoulder as the operative site. At this time, right upper extremity is draped out and then prewashed with Hibiclens solution, followed by alcohol followed by ChloraPrep and drape. Next, 10-15 pounds of traction is used during various portions of the case. At this point, surgical pause identifies right shoulder as the operative site. At this point, local anesthetic infused saline [TIME: 04:30], please see nursing report for final quantity. Posterior incision made. Scope is introduced into the glenohumeral joint. Outside-in technique used to create anterior portal. Diagnostic arthroscopy is carried out. Minimal debridement of labrum and undersurface of rotator cuff tear is performed and then attention is directed to the subacromial space. Lateral incision is made and a combination of shaver, bur and arthroscopic heating device with appropriate flow are used to debride the bursitis and then convert the acromion to a type 1 acromion. The rotator cuff is examined and during the course of the subacromial decompression, there is noted to be at times significant bleeding and the pressure is raised on the pump at various times to try to help control bleeding and in communication with the anesthesia team, it is determined that while the patient initially had well controlled blood pressure, that the blood pressure had temporarily increased and this is felt to be the cause of the subacromial bleeding. Blood pressure is controlled and hemostasis is ultimately achieved in the subacromial space. During the course of this, it is determined by the anesthesia team that the patient is not stable with regard to his blood pressure and that surgery should be aborted, at which point instruments are immediately removed. Simple sutures are placed in the 3 small incisions, dressing are immediately applied and the patient is turned onto his back. This takes but a brief moment, and soon thereafter anesthesia team directs the initiation of a CODE. Chest compressions are immediately begun at the direction of the anesthesia team. Please see anesthesia report and medical hospitalist report, other documentation for further details of the cardiovascular events and for additional documentation with regard to the CODE. After the patient is stabilized, conversation with patient's is had in a private room. She is advised that the patient had a cardiac event during surgery and that a CODE is initiated. We discussed intraoperative decision making and the status of his shoulder. She is advised that her would go to the ICU and remained intubated and then we will continue a workup to include multiple lab tests that have already been initiated. EKG, which had already been performed and likely further EKGs as well as a stat echocardiogram and possible CT angiogram. We will defer to medical team for cardiovascular care and his right upper extremity would remain in a sling and have dressing taped. He would be welcome to use right upper extremity as tolerated, once the block wore off. He will remain in a sling with dressing in place. The patient is stabilized and subsequently transferred to ICU directly. TD: 05/19/2019 08:09 MARCY
--- NOTE | 2019-05-19 10:25 | DISCHARGE SUMMARY ---
"Discharge Summary Admit Date: 05/19/19 Discharge Date: 05/20/19 Discharging Provider: Kana Montes Primary Care Provider: Kati Oconnell Code Status: Attempt Resuscitation Condition at Discharge: Stable Discharge Disposition: 02 Transfer Acute Care Hosp Discharge Facility Name: [facility] - DIAGNOSES Admission Diagnoses: Arctic arrest Paroxysmal atrial fibrillation Hypertension Abnormal EKG Type 2 diabetes mellitus Status post arthroscopy of right shoulder Discharge Diagnoses with Status of Each Condition: Cardiac arrest - Went into atrial fibrillation with rapid ventricular response with heart rate in the 140s during the OR. Was given metoprolol and esmolol. He then went to PEA arrest and had 2 minutes of CPR. Rhythm after return of spontaneous relation showed atrial fibrillation with ST depressions in V2 to V6. He was given amiodarone 150 mg bolus. He has since been extubated and is neurologically intact. He remains on amiodarone at 0.5 mg an hour. NSTEMI - His echocardiogram revealed an ejection fraction of 45% there are no regional wall motion abnormalities noted. His troponins increased from 19 to 1600. His EKG initially showed ST depressions in V2 to V6. There is resolution of the ST depressions but T wave inversions are present in V2 to V6. He does complain of chest pain but this is primary located where chest compressions were completed and his chest is tender to palpation. He was given aspirin and started on a heparin drip. He is not on a beta-colin due to his hypotension as he is requiring pressor support with norepinephrine. Paroxsymal atrial fibrillation - This appears to be a new diagnosis for him. He is now on amiodarone at 0.5 mg an hour after receiving a bolus. He is in a sinus rhythm with heart rates in the 80s. Hypotension - He remains hypotensive requiring 1 mcg of norepinephrine. His mean arterial pressure is around 65. Type 2 diabetes mellitus - His blood glucose has been around 200. He is currently n.p.o. as he may need an angiogram. He is currently on a sliding scale. Status post arthroscopy right shoulder - He was scheduled for subacromial decompression as well as repair of rotator cuff tear. Unfortunately he only had a subacromial decompression. Orthopedics has placed him in a sling. He is receiving morphine IV for pain control. - HPI History of Present Illness: This is a 69-year-old male with a past medical history significant for hypertension, diabetes who was taken to the operating room today for arthroscopic surgery of the right shoulder for possible rotator cuff repair. About 1 hour into the operation, the patient suddenly went into atrial fibrillation with heart rates in the 170s and a blood pressure of 200. His heart rate was previously stable in the 70s and his blood pressure had been in the 90s systolic. He was given 5 of Pressor IV as well as 30 mg of esmolol. He was also given 100 mcg of fentanyl. His heart rate began to improve but then it dipped into the 40s and he became hypotensive. He became to look very pale and he unfortunately lost a pulse. CPR was initiated and a CODE BLUE was called. He was given half milligram of epinephrine and after 2 minutes of CPR, pulse was palpable. He was hypotensive with a systolic blood pressure in the 60s and his heart rate was in the 140s and appeared to be irregular with concern for atrial fibrillation. He was given 200 mics of Samson-Synephrine given the hypotension. His blood pressure improved to the 140s systolic. Repeat EKG after return of spontaneous circulation showed ST depressions in V2 to V6 which are new compared to prior EKG. A central line and arterial line were placed in the operating room and the patient was then transferred to the intensive care unit for further management. - CONSULTS | PROCEDURES Procedures: Echocardiogram was performed May 18. Preliminary report showed ejection fraction of 45 to 50%. No regional wall motion abnormalities are seen. There is moderate right ventricular enlargement the right ventricular systolic function is mildly impaired. No aortic stenosis. There was mild to moderate tricuspid rotation. RVSP at rest was 43 mmHg. CTA of the chest was performed May 18. There is no pulmonary embolism identified. There was fairly extensive left upper lobe airspace disease which may be infection or edema. Coronary artery calcifications noted. There is also fatty liver present. - HOSPITAL COURSE Hospital Course: He was admitted to the intensive care unit after having a cardiac arrest while on the operating room table for right arthroscopic shoulder surgery. The initial rhythm was PEA arrest. He had 2 minutes of CPR and received half milligram of epinephrine. Return spontaneous relation was obtained. Initial EKG showed ST depressions in V2 to V6. He also appeared to be in atrial fibrillation was given an amiodarone bolus of 150 mg. A stat echocardiogram was obtained which showed an ejection fraction of 45%. There was concern for right heart strain on the echocardiogram. Initial troponin was 19. A CTA of the chest was obtained which was negative for pulmonary embolism but was concerning for pulmonary edema. The patient was hypotensive and required levophed. His troponins were trended and the increase from 19 to 400 to 1000 to 1600. The overnight provider contacted cardiology who recommended treating the patient as NSTEMI. He was started on heparin and given Aspirin. A beta-colin could not be administered as he was hypotensive on pressors. Following morning he was awake and following commands off of sedation and so he was extubated. He is now saturating well on room air. He does complain of chest pain located over the sternum. Repeat EKGs have shown improvement in the ST depressions and they are no longer present although he does have T wave inversions in V2 to V6. Given his continued rise in troponin, cardiology recommended transfer. Spoke with the pipe fitter gas pipe on-call at [facility] who graciously accepted the patient in transfer. Patient is currently on 1 mcg of levophed with a mean arterial pressure of 65. He is in a sinus rhythm with heart rate in the 80s on 0.5 mg of amiodarone. He is saturating in the mid 90s on room air. - ALLERGIES Allergies/Adverse Reactions: Allergies Allergy/AdvReac Type Severity Reaction Status Date / Time ampicillin Allergy Rash Verified 05/09/19 09:16 - MEDICATIONS Home Medications: Ambulatory Orders Medication Instructions Recorded Confirmed Betamethasone Dipropionate 1 applic TP BID PRN 05/09/19 05/09/19 Econazole Nitrate 1 applic TOP DAILY PRN 05/09/19 05/18/19 Insulin Glargine [Lantus Solostar] 40 unit SQ DAILY 05/09/19 05/18/19 Insulin Lispro [Humalog Kwikpen 25 unit SUBQ AC 05/09/19 05/09/19 U-100] Liraglutide [Victoza 2-Sky] 1.8 mg SQ DAILY 05/09/19 05/18/19 Metformin HCl 1,000 mg PO BID 05/09/19 05/18/19 Potassium Citrate [Potassium 10 meq PO BID 05/09/19 05/18/19 Citrate ER] Simvastatin 10 mg PO QPM 05/09/19 05/18/19 Telmisartan 40 mg PO DAILY 05/09/19 05/18/19 Triamcinolone Acetonide 1 applic TP BID 05/09/19 05/18/19 Valacyclovir HCl [Valacyclovir] 1,000 mg PO DAILY 05/09/19 05/18/19 - PHYSICAL EXAM AT DISCHARGE General Appearance: positive: No acute distress Eyes Bilateral: positive: Normal inspection ENT: positive: ENT inspection nml Neck: positive: Nml inspection, Other (Left IJ central line in place.) Respiratory: positive: Chest non-tender (Tender to palpation over the sternum.), No respiratory distress, Breath sounds nml. negative: Wheezes, Rales, Rhonchi Cardiovascular: positive: Regular rate & rhythm, No murmur. negative: Tachycardia, Bradycardia, Systolic murmur, Diastolic murmur Abdomen: positive: Non-tender, No distention. negative: Tenderness Skin: positive: No rash, Warm, Dry Extremities: positive: No pedal edema, Other (With a dressing in place over the right shoulder. Sling is also in place.) Neurologic/Psychiatric: positive: Oriented x3. negative: Disoriented to person, Disoriented to place - LABS Result Diagrams: 05/19/19 09:13 05/19/19 06:00 - DIAGNOSTIC IMAGING Diagnostic Imaging Results Comments: Laboratory Results - last 24 hr 05/18/19 05/18/19 05/18/19 11:24 15:33 15:33 WBC 16.7 H RBC 4.00 L Hgb 13.6 L Hct 41.4 L MCV 103.5 H MCH 34.0 H MCHC 32.9 RDW 12.9 Plt Count 197 MPV 9.9 Neut # (Auto) 8.5 H Lymph # (Auto) 6.4 H [place] # (Auto) 1.0 Eos # (Auto) 0.2 Baso # (Auto) 0.1 Absolute Nucleated RBC 0.05 Band Neuts % (Manual) Not Reportable Abnorm Lymph % (Manual) Not Reportable Nucleated RBC % 0.3 Neutrophils # (Manual) Not Reportable Lymphocytes # (Manual) Not Reportable Monocytes # (Manual) Not Reportable Eosinophils # (Manual) Not Reportable Basophils # (Manual) Not Reportable Differential Comment MANUAL=AUTO DIFF Manual Slide Review Indicated Platelet Estimate NORMAL (130-450,000) Platelet Morphology NORMAL APPEARANCE RBC Morph Micro Appear 1+ ANISOCYTOSIS PT INR Anti-Xa Level Bld Gas Analysis Time Sample Site ABG pH ABG pCO2 ABG pO2 ABG HCO3 ABG Total CO2 ABG O2 Saturation ABG Base Excess Josue Test VBG pH VBG pCO2 VBG pO2 VBG HCO3 VBG Total CO2 VBG O2 Saturation VBG Base Excess Respiration Rate O2 Delivery Device Vent Mode FiO2 Tidal Volume PEEP Pressure Support Vent Sodium 140 Potassium 3.3 L Chloride 106 Carbon Dioxide 23 Anion Gap 11.0 BUN 12 Creatinine 0.9 Estimated GFR (MDRD) 84 L Glucose 162 H POC Whole Bld Glucose 148 H Lactic Acid Calcium 7.9 L Phosphorus Magnesium Total Bilirubin Direct Bilirubin AST ALT Alkaline Phosphatase Troponin I High Sens Total Protein Albumin Globulin Nasal Screen MRSA (PCR) 05/18/19 05/18/19 05/18/19 15:33 15:33 15:33 WBC RBC Hgb Hct MCV MCH MCHC RDW Plt Count MPV Neut # (Auto) Lymph # (Auto) [place] # (Auto) Eos # (Auto) Baso # (Auto) Absolute Nucleated RBC Band Neuts % (Manual) Abnorm Lymph % (Manual) Nucleated RBC % Neutrophils # (Manual) Lymphocytes # (Manual) Monocytes # (Manual) Eosinophils # (Manual) Basophils # (Manual) Differential Comment Manual Slide Review Platelet Estimate Platelet Morphology RBC Morph Micro Appear PT 14.2 H INR 1.3 H Anti-Xa Level Bld Gas Analysis Time Sample Site ABG pH ABG pCO2 ABG pO2 ABG HCO3 ABG Total CO2 ABG O2 Saturation ABG Base Excess Josue Test VBG pH VBG pCO2 VBG pO2 VBG HCO3 VBG Total CO2 VBG O2 Saturation VBG Base Excess Respiration Rate O2 Delivery Device Vent Mode FiO2 Tidal Volume PEEP Pressure Support Vent Sodium Potassium Chloride Carbon Dioxide Anion Gap BUN Creatinine Estimated GFR (MDRD) Glucose POC Whole Bld Glucose Lactic Acid 5.3 H* Calcium Phosphorus Magnesium Total Bilirubin Direct Bilirubin AST ALT Alkaline Phosphatase Troponin I High Sens 19.8 H Total Protein Albumin Globulin Nasal Screen MRSA (PCR) 05/18/19 05/18/19 05/18/19 16:11 16:55 18:19 WBC RBC Hgb Hct MCV MCH MCHC RDW Plt Count MPV Neut # (Auto) Lymph # (Auto) [place] # (Auto) Eos # (Auto) Baso # (Auto) Absolute Nucleated RBC Band Neuts % (Manual) Abnorm Lymph % (Manual) Nucleated RBC % Neutrophils # (Manual) Lymphocytes # (Manual) Monocytes # (Manual) Eosinophils # (Manual) Basophils # (Manual) Differential Comment Manual Slide Review Platelet Estimate Platelet Morphology RBC Morph Micro Appear PT INR Anti-Xa Level Bld Gas Analysis Time 1619 Sample Site A-LINE ABG pH 7.28 L ABG pCO2 41 ABG pO2 72 L ABG HCO3 18.9 L ABG Total CO2 20.2 L ABG O2 Saturation 92 L ABG Base Excess -7.4 L Josue Test NOT APPLICABLE VBG pH VBG pCO2 VBG pO2 VBG HCO3 VBG Total CO2 VBG O2 Saturation VBG Base Excess Respiration Rate 14 O2 Delivery Device VENTILATOR Vent Mode ASSIST/CONTROL FiO2 95.00 Tidal Volume 653 PEEP 5 Pressure Support Vent 10 Sodium Potassium Chloride Carbon Dioxide Anion Gap BUN Creatinine Estimated GFR (MDRD) Glucose POC Whole Bld Glucose 213 H Lactic Acid Calcium Phosphorus Magnesium Total Bilirubin Direct Bilirubin AST ALT Alkaline Phosphatase Troponin I High Sens Total Protein Albumin Globulin Nasal Screen MRSA (PCR) NEGATIVE 05/18/19 05/18/19 05/18/19 18:23 19:27 19:27 WBC RBC Hgb Hct MCV MCH MCHC RDW Plt Count MPV Neut # (Auto) Lymph # (Auto) [place] # (Auto) Eos # (Auto) Baso # (Auto) Absolute Nucleated RBC Band Neuts % (Manual) Abnorm Lymph % (Manual) Nucleated RBC % Neutrophils # (Manual) Lymphocytes # (Manual) Monocytes # (Manual) Eosinophils # (Manual) Basophils # (Manual) Differential Comment Manual Slide Review Platelet Estimate Platelet Morphology RBC Morph Micro Appear PT INR Anti-Xa Level Bld Gas Analysis Time 1927 Sample Site LEFT RADIAL ABG pH 7.34 L ABG pCO2 39 ABG pO2 266 H* ABG HCO3 20.7 L ABG Total CO2 21.9 ABG O2 Saturation 99 H ABG Base Excess -4.6 L Josue Test POSITIVE VBG pH 7.308 L VBG pCO2 50.8 VBG pO2 50.4 H VBG HCO3 24.9 VBG Total CO2 26.4 VBG O2 Saturation 83.9 H VBG Base Excess -2.0 Respiration Rate 16 O2 Delivery Device VENTILATOR Vent Mode SIMV FiO2 100.00 Tidal Volume 500 PEEP 5 Pressure Support Vent 10 Sodium Potassium Chloride Carbon Dioxide Anion Gap BUN Creatinine Estimated GFR (MDRD) Glucose POC Whole Bld Glucose Lactic Acid 1.6 Calcium Phosphorus Magnesium Total Bilirubin Direct Bilirubin AST ALT Alkaline Phosphatase Troponin I High Sens Total Protein Albumin Globulin Nasal Screen MRSA (PCR) 05/18/19 05/18/19 05/19/19 19:40 23:55 00:08 WBC RBC Hgb Hct MCV MCH MCHC RDW Plt Count MPV Neut # (Auto) Lymph # (Auto) [place] # (Auto) Eos # (Auto) Baso # (Auto) Absolute Nucleated RBC Band Neuts % (Manual) Abnorm Lymph % (Manual) Nucleated RBC % Neutrophils # (Manual) Lymphocytes # (Manual) Monocytes # (Manual) Eosinophils # (Manual) Basophils # (Manual) Differential Comment Manual Slide Review Platelet Estimate Platelet Morphology RBC Morph Micro Appear PT INR Anti-Xa Level Bld Gas Analysis Time Sample Site ABG pH ABG pCO2 ABG pO2 ABG HCO3 ABG Total CO2 ABG O2 Saturation ABG Base Excess Josue Test VBG pH VBG pCO2 VBG pO2 VBG HCO3 VBG Total CO2 VBG O2 Saturation VBG Base Excess Respiration Rate O2 Delivery Device Vent Mode FiO2 Tidal Volume PEEP Pressure Support Vent Sodium Potassium Chloride Carbon Dioxide Anion Gap BUN Creatinine Estimated GFR (MDRD) Glucose POC Whole Bld Glucose 233 H Lactic Acid Calcium Phosphorus Magnesium Total Bilirubin Direct Bilirubin AST ALT Alkaline Phosphatase Troponin I High Sens 446.3 H* 1130.6 H* Total Protein Albumin Globulin Nasal Screen MRSA (PCR) 05/19/19 05/19/19 05/19/19 05:35 06:00 06:00 WBC 16.5 H RBC 3.92 L Hgb 13.4 L Hct 39.9 L MCV 101.8 H MCH 34.2 H MCHC 33.6 RDW 13.2 Plt Count 245 MPV 9.6 Neut # (Auto) 13.4 H Lymph # (Auto) 1.5 [place] # (Auto) 1.4 H Eos # (Auto) 0.0 Baso # (Auto) 0.0 Absolute Nucleated RBC 0.00 Band Neuts % (Manual) Abnorm Lymph % (Manual) Nucleated RBC % 0.0 Neutrophils # (Manual) Lymphocytes # (Manual) Monocytes # (Manual) Eosinophils # (Manual) Basophils # (Manual) Differential Comment Manual Slide Review Platelet Estimate Platelet Morphology RBC Morph Micro Appear PT INR Anti-Xa Level Bld Gas Analysis Time Sample Site ABG pH ABG pCO2 ABG pO2 ABG HCO3 ABG Total CO2 ABG O2 Saturation ABG Base Excess Josue Test VBG pH VBG pCO2 VBG pO2 VBG HCO3 VBG Total CO2 VBG O2 Saturation VBG Base Excess Respiration Rate O2 Delivery Device Vent Mode FiO2 Tidal Volume PEEP Pressure Support Vent Sodium 136 Potassium 4.4 Chloride 102 Carbon Dioxide 25 Anion Gap 9.0 BUN 14 Creatinine 1.0 Estimated GFR (MDRD) 75 L Glucose 207 H POC Whole Bld Glucose 199 H Lactic Acid Calcium 8.3 L Phosphorus 3.5 Magnesium 1.6 L Total Bilirubin 0.4 Direct Bilirubin 0.1 AST 85 H ALT 168 H Alkaline Phosphatase 35 L Troponin I High Sens Total Protein 6.0 L Albumin 3.3 Globulin 2.7 Nasal Screen MRSA (PCR) 05/19/19 05/19/19 05/19/19 06:00 06:00 09:13 WBC 17.7 H RBC 3.96 L Hgb 13.1 L Hct 39.8 L MCV 100.5 H MCH 33.1 H MCHC 32.9 RDW 13.2 Plt Count 253 MPV 10.0 Neut # (Auto) Lymph # (Auto) [place] # (Auto) Eos # (Auto) Baso # (Auto) Absolute Nucleated RBC Band Neuts % (Manual) Abnorm Lymph % (Manual) Nucleated RBC % Neutrophils # (Manual) Lymphocytes # (Manual) Monocytes # (Manual) Eosinophils # (Manual) Basophils # (Manual) Differential Comment Manual Slide Review Platelet Estimate Platelet Morphology RBC Morph Micro Appear PT INR Anti-Xa Level 0.3 Bld Gas Analysis Time Sample Site ABG pH ABG pCO2 ABG pO2 ABG HCO3 ABG Total CO2 ABG O2 Saturation ABG Base Excess Josue Test VBG pH VBG pCO2 VBG pO2 VBG HCO3 VBG Total CO2 VBG O2 Saturation VBG Base Excess Respiration Rate O2 Delivery Device Vent Mode FiO2 Tidal Volume PEEP Pressure Support Vent Sodium Potassium Chloride Carbon Dioxide Anion Gap BUN Creatinine Estimated GFR (MDRD) Glucose POC Whole Bld Glucose Lactic Acid Calcium Phosphorus Magnesium Total Bilirubin Direct Bilirubin AST ALT Alkaline Phosphatase Troponin I High Sens 1624.0 H* Total Protein Albumin Globulin Nasal Screen MRSA (PCR) - TIME SPENT Time Spent in Discharge (Minutes): 55"
[2019-05-19] MEDS ORDERED: ASPIRIN CHEW 81 MG TABLET PO STA (10:28)
[2019-05-19 11:08] VITALS: BP 107/63
--- NOTE | 2019-05-19 12:56 | PROVIDER PROGRESS NOTE ---
Subjective - Prog Note Date Prog Note Date: 05/19/19 Prog Note Time: 15:00 - Subjective Pt reports feeling: Improved (Patient awake and alert and conversive. Reports no significant shoulder pain. Reports minimal funtion of right upper extremity.) Objective - Vital Signs/Intake & Output Vital Signs: Vital Signs x48h Temp Pulse Resp BP Pulse Ox 05/19/19 11:00 36.6 C 90 20 107/63 94 05/19/19 10:00 89 22 103/66 94 05/19/19 09:00 88 17 104/61 94 05/19/19 08:00 36.9 C 88 15 91/72 96 05/19/19 07:00 85 20 93/56 L 96 05/19/19 06:00 84 17 95/68 95 05/19/19 05:41 16 95 05/19/19 05:00 82 95/59 L Intake & Output: Intake & Output 05/16/19 05/17/19 05/18/19 05/19/19 23:59 23:59 23:59 23:59 Intake Total 460.203 698.529 Output Total 2025 715 Balance -1564.797 -16.471 - Lab Results Fish Bones: 05/19/19 09:13 05/19/19 06:00 Other Labs: Lab Results x24hrs 05/19/19 05/19/19 05/19/19 Range/Units 10:50 09:13 06:00 WBC 17.7 H (4.8-10.8) x10^3/uL RBC 3.96 L (4.70-6.10) 10^6/uL Hgb 13.1 L (14.0-18.0) g/dL Hct 39.8 L (42.0-52.0) % MCV 100.5 H (80.0-94.0) fL MCH 33.1 H (27.0-31.0) pg MCHC 32.9 (32.0-36.0) g/dL RDW 13.2 (12.0-15.0) % Plt Count 253 (130-450) 10^3/uL MPV 10.0 (7.4-11.4) fL Neut # (Auto) (1.5-6.6) 10^3/uL Lymph # (Auto) (1.5-3.5) 10^3/uL Haines # (Auto) (0.0-1.0) 10^3/uL Eos # (Auto) (0.0-0.7) 10^3/uL Baso # (Auto) (0.0-0.1) 10^3/uL Absolute Nucleated RBC x10^3/uL Band Neuts % (Manual) Abnorm Lymph % (Manual) Nucleated RBC % /100WBC Neutrophils # (Manual) Lymphocytes # (Manual) Monocytes # (Manual) Eosinophils # (Manual) Basophils # (Manual) Differential Comment Manual Slide Review Platelet Estimate (NORMAL) Platelet Morphology (NORMAL) RBC Morph Micro Appear (NORMAL) PT (9.9-12.6) secs INR (0.8-1.2) Anti-Xa Level 0.3 ( - 0.7) U/mL Bld Gas Analysis Time Sample Site ABG pH (7.35-7.45) ABG pCO2 (34-45) mmHg ABG pO2 (80-100) mmHg ABG HCO3 (22.0-26.0) mmol/L ABG Total CO2 (21.0-29.0) MMOL/L ABG O2 Saturation (94-98) % ABG Base Excess (-2.0-3.0) mmol/L Josue Test VBG pH (7.31-7.41) VBG pCO2 (41-51) mmHg VBG pO2 (25-47) mmHg VBG HCO3 (23-28) mmol/L VBG Total CO2 (24-29) mmol/L VBG O2 Saturation (60-80) % VBG Base Excess (-2 - +2) mmol/L Respiration Rate b/min O2 Delivery Device Vent Mode FiO2 Tidal Volume mL PEEP cmH2O Pressure Support Vent cmH2O Sodium (135-145) mmol/L Potassium (3.5-5.0) mmol/L Chloride (101-111) mmol/L Carbon Dioxide (21-32) mmol/L Anion Gap (6-13) BUN (6-20) mg/dL Creatinine (0.6-1.2) mg/dL Estimated GFR (MDRD) (>89) Glucose (70-100) mg/dL POC Whole Bld Glucose 158 H (70 - 100) mg/dL Lactic Acid (0.5-2.2) mmol/L Calcium (8.5-10.3) mg/dL Phosphorus (2.5-4.6) mg/dL Magnesium (1.7-2.8) mg/dL Total Bilirubin (0.2-1.0) mg/dL Direct Bilirubin (0.1-0.5) mg/dL AST (10-42) IU/L ALT (10-60) IU/L Alkaline Phosphatase (42-121) IU/L Troponin I High Sens (2.3-19.7) ng/L Total Protein (6.7-8.2) g/dL Albumin (3.2-5.5) g/dL Globulin (2.1-4.2) g/dL Nasal Screen MRSA (PCR) (NEGATIVE) 05/19/19 05/19/19 05/19/19 Range/Units 06:00 06:00 06:00 WBC 16.5 H (4.8-10.8) x10^3/uL RBC 3.92 L (4.70-6.10) 10^6/uL Hgb 13.4 L (14.0-18.0) g/dL Hct 39.9 L (42.0-52.0) % MCV 101.8 H (80.0-94.0) fL MCH 34.2 H (27.0-31.0) pg MCHC 33.6 (32.0-36.0) g/dL RDW 13.2 (12.0-15.0) % Plt Count 245 (130-450) 10^3/uL MPV 9.6 (7.4-11.4) fL Neut # (Auto) 13.4 H (1.5-6.6) 10^3/uL Lymph # (Auto) 1.5 (1.5-3.5) 10^3/uL Haines # (Auto) 1.4 H (0.0-1.0) 10^3/uL Eos # (Auto) 0.0 (0.0-0.7) 10^3/uL Baso # (Auto) 0.0 (0.0-0.1) 10^3/uL Absolute Nucleated RBC 0.00 x10^3/uL Band Neuts % (Manual) Abnorm Lymph % (Manual) Nucleated RBC % 0.0 /100WBC Neutrophils # (Manual) Lymphocytes # (Manual) Monocytes # (Manual) Eosinophils # (Manual) Basophils # (Manual) Differential Comment Manual Slide Review Platelet Estimate (NORMAL) Platelet Morphology (NORMAL) RBC Morph Micro Appear (NORMAL) PT (9.9-12.6) secs INR (0.8-1.2) Anti-Xa Level ( - 0.7) U/mL Bld Gas Analysis Time Sample Site ABG pH (7.35-7.45) ABG pCO2 (34-45) mmHg ABG pO2 (80-100) mmHg ABG HCO3 (22.0-26.0) mmol/L ABG Total CO2 (21.0-29.0) MMOL/L ABG O2 Saturation (94-98) % ABG Base Excess (-2.0-3.0) mmol/L Josue Test VBG pH (7.31-7.41) VBG pCO2 (41-51) mmHg VBG pO2 (25-47) mmHg VBG HCO3 (23-28) mmol/L VBG Total CO2 (24-29) mmol/L VBG O2 Saturation (60-80) % VBG Base Excess (-2 - +2) mmol/L Respiration Rate b/min O2 Delivery Device Vent Mode FiO2 Tidal Volume mL PEEP cmH2O Pressure Support Vent cmH2O Sodium 136 (135-145) mmol/L Potassium 4.4 (3.5-5.0) mmol/L Chloride 102 (101-111) mmol/L Carbon Dioxide 25 (21-32) mmol/L Anion Gap 9.0 (6-13) BUN 14 (6-20) mg/dL Creatinine 1.0 (0.6-1.2) mg/dL Estimated GFR (MDRD) 75 L (>89) Glucose 207 H (70-100) mg/dL POC Whole Bld Glucose (70 - 100) mg/dL Lactic Acid (0.5-2.2) mmol/L Calcium 8.3 L (8.5-10.3) mg/dL Phosphorus 3.5 (2.5-4.6) mg/dL Magnesium 1.6 L (1.7-2.8) mg/dL Total Bilirubin 0.4 (0.2-1.0) mg/dL Direct Bilirubin 0.1 (0.1-0.5) mg/dL AST 85 H (10-42) IU/L ALT 168 H (10-60) IU/L Alkaline Phosphatase 35 L (42-121) IU/L Troponin I High Sens 1624.0 H* (2.3-19.7) ng/L Total Protein 6.0 L (6.7-8.2) g/dL Albumin 3.3 (3.2-5.5) g/dL Globulin 2.7 (2.1-4.2) g/dL Nasal Screen MRSA (PCR) (NEGATIVE) 05/19/19 05/19/19 05/18/19 Range/Units 05:35 00:08 23:55 WBC (4.8-10.8) x10^3/uL RBC (4.70-6.10) 10^6/uL Hgb (14.0-18.0) g/dL Hct (42.0-52.0) % MCV (80.0-94.0) fL MCH (27.0-31.0) pg MCHC (32.0-36.0) g/dL RDW (12.0-15.0) % Plt Count (130-450) 10^3/uL MPV (7.4-11.4) fL Neut # (Auto) (1.5-6.6) 10^3/uL Lymph # (Auto) (1.5-3.5) 10^3/uL Haines # (Auto) (0.0-1.0) 10^3/uL Eos # (Auto) (0.0-0.7) 10^3/uL Baso # (Auto) (0.0-0.1) 10^3/uL Absolute Nucleated RBC x10^3/uL Band Neuts % (Manual) Abnorm Lymph % (Manual) Nucleated RBC % /100WBC Neutrophils # (Manual) Lymphocytes # (Manual) Monocytes # (Manual) Eosinophils # (Manual) Basophils # (Manual) Differential Comment Manual Slide Review Platelet Estimate (NORMAL) Platelet Morphology (NORMAL) RBC Morph Micro Appear (NORMAL) PT (9.9-12.6) secs INR (0.8-1.2) Anti-Xa Level ( - 0.7) U/mL Bld Gas Analysis Time Sample Site ABG pH (7.35-7.45) ABG pCO2 (34-45) mmHg ABG pO2 (80-100) mmHg ABG HCO3 (22.0-26.0) mmol/L ABG Total CO2 (21.0-29.0) MMOL/L ABG O2 Saturation (94-98) % ABG Base Excess (-2.0-3.0) mmol/L Josue Test VBG pH (7.31-7.41) VBG pCO2 (41-51) mmHg VBG pO2 (25-47) mmHg VBG HCO3 (23-28) mmol/L VBG Total CO2 (24-29) mmol/L VBG O2 Saturation (60-80) % VBG Base Excess (-2 - +2) mmol/L Respiration Rate b/min O2 Delivery Device Vent Mode FiO2 Tidal Volume mL PEEP cmH2O Pressure Support Vent cmH2O Sodium (135-145) mmol/L Potassium (3.5-5.0) mmol/L Chloride (101-111) mmol/L Carbon Dioxide (21-32) mmol/L Anion Gap (6-13) BUN (6-20) mg/dL Creatinine (0.6-1.2) mg/dL Estimated GFR (MDRD) (>89) Glucose (70-100) mg/dL POC Whole Bld Glucose 199 H 233 H (70 - 100) mg/dL Lactic Acid (0.5-2.2) mmol/L Calcium (8.5-10.3) mg/dL Phosphorus (2.5-4.6) mg/dL Magnesium (1.7-2.8) mg/dL Total Bilirubin (0.2-1.0) mg/dL Direct Bilirubin (0.1-0.5) mg/dL AST (10-42) IU/L ALT (10-60) IU/L Alkaline Phosphatase (42-121) IU/L Troponin I High Sens 1130.6 H* (2.3-19.7) ng/L Total Protein (6.7-8.2) g/dL Albumin (3.2-5.5) g/dL Globulin (2.1-4.2) g/dL Nasal Screen MRSA (PCR) (NEGATIVE) 05/18/19 05/18/19 05/18/19 Range/Units 19:40 19:27 19:27 WBC (4.8-10.8) x10^3/uL RBC (4.70-6.10) 10^6/uL Hgb (14.0-18.0) g/dL Hct (42.0-52.0) % MCV (80.0-94.0) fL MCH (27.0-31.0) pg MCHC (32.0-36.0) g/dL RDW (12.0-15.0) % Plt Count (130-450) 10^3/uL MPV (7.4-11.4) fL Neut # (Auto) (1.5-6.6) 10^3/uL Lymph # (Auto) (1.5-3.5) 10^3/uL Haines # (Auto) (0.0-1.0) 10^3/uL Eos # (Auto) (0.0-0.7) 10^3/uL Baso # (Auto) (0.0-0.1) 10^3/uL Absolute Nucleated RBC x10^3/uL Band Neuts % (Manual) Abnorm Lymph % (Manual) Nucleated RBC % /100WBC Neutrophils # (Manual) Lymphocytes # (Manual) Monocytes # (Manual) Eosinophils # (Manual) Basophils # (Manual) Differential Comment Manual Slide Review Platelet Estimate (NORMAL) Platelet Morphology (NORMAL) RBC Morph Micro Appear (NORMAL) PT (9.9-12.6) secs INR (0.8-1.2) Anti-Xa Level ( - 0.7) U/mL Bld Gas Analysis Time 192 Sample Site LEFT RADIAL ABG pH 7.34 L (7.35-7.45) ABG pCO2 39 (34-45) mmHg ABG pO2 266 H* (80-100) mmHg ABG HCO3 20.7 L (22.0-26.0) mmol/L ABG Total CO2 21.9 (21.0-29.0) MMOL/L ABG O2 Saturation 99 H (94-98) % ABG Base Excess -4.6 L (-2.0-3.0) mmol/L Josue Test POSITIVE VBG pH 7.308 L (7.31-7.41) VBG pCO2 50.8 (41-51) mmHg VBG pO2 50.4 H (25-47) mmHg VBG HCO3 24.9 (23-28) mmol/L VBG Total CO2 26.4 (24-29) mmol/L VBG O2 Saturation 83.9 H (60-80) % VBG Base Excess -2.0 (-2 - +2) mmol/L Respiration Rate 16 b/min O2 Delivery Device VENTILATOR Vent Mode SIMV FiO2 100.00 Tidal Volume 500 mL PEEP 5 cmH2O Pressure Support Vent 10 cmH2O Sodium (135-145) mmol/L Potassium (3.5-5.0) mmol/L Chloride (101-111) mmol/L Carbon Dioxide (21-32) mmol/L Anion Gap (6-13) BUN (6-20) mg/dL Creatinine (0.6-1.2) mg/dL Estimated GFR (MDRD) (>89) Glucose (70-100) mg/dL POC Whole Bld Glucose (70 - 100) mg/dL Lactic Acid (0.5-2.2) mmol/L Calcium (8.5-10.3) mg/dL Phosphorus (2.5-4.6) mg/dL Magnesium (1.7-2.8) mg/dL Total Bilirubin (0.2-1.0) mg/dL Direct Bilirubin (0.1-0.5) mg/dL AST (10-42) IU/L ALT (10-60) IU/L Alkaline Phosphatase (42-121) IU/L Troponin I High Sens 446.3 H* (2.3-19.7) ng/L Total Protein (6.7-8.2) g/dL Albumin (3.2-5.5) g/dL Globulin (2.1-4.2) g/dL Nasal Screen MRSA (PCR) (NEGATIVE) 05/18/19 05/18/19 05/18/19 Range/Units 18:23 18:19 16:55 WBC (4.8-10.8) x10^3/uL RBC (4.70-6.10) 10^6/uL Hgb (14.0-18.0) g/dL Hct (42.0-52.0) % MCV (80.0-94.0) fL MCH (27.0-31.0) pg MCHC (32.0-36.0) g/dL RDW (12.0-15.0) % Plt Count (130-450) 10^3/uL MPV (7.4-11.4) fL Neut # (Auto) (1.5-6.6) 10^3/uL Lymph # (Auto) (1.5-3.5) 10^3/uL Haines # (Auto) (0.0-1.0) 10^3/uL Eos # (Auto) (0.0-0.7) 10^3/uL Baso # (Auto) (0.0-0.1) 10^3/uL Absolute Nucleated RBC x10^3/uL Band Neuts % (Manual) Abnorm Lymph % (Manual) Nucleated RBC % /100WBC Neutrophils # (Manual) Lymphocytes # (Manual) Monocytes # (Manual) Eosinophils # (Manual) Basophils # (Manual) Differential Comment Manual Slide Review Platelet Estimate (NORMAL) Platelet Morphology (NORMAL) RBC Morph Micro Appear (NORMAL) PT (9.9-12.6) secs INR (0.8-1.2) Anti-Xa Level ( - 0.7) U/mL Bld Gas Analysis Time Sample Site ABG pH (7.35-7.45) ABG pCO2 (34-45) mmHg ABG pO2 (80-100) mmHg ABG HCO3 (22.0-26.0) mmol/L ABG Total CO2 (21.0-29.0) MMOL/L ABG O2 Saturation (94-98) % ABG Base Excess (-2.0-3.0) mmol/L Josue Test VBG pH (7.31-7.41) VBG pCO2 (41-51) mmHg VBG pO2 (25-47) mmHg VBG HCO3 (23-28) mmol/L VBG Total CO2 (24-29) mmol/L VBG O2 Saturation (60-80) % VBG Base Excess (-2 - +2) mmol/L Respiration Rate b/min O2 Delivery Device Vent Mode FiO2 Tidal Volume mL PEEP cmH2O Pressure Support Vent cmH2O Sodium (135-145) mmol/L Potassium (3.5-5.0) mmol/L Chloride (101-111) mmol/L Carbon Dioxide (21-32) mmol/L Anion Gap (6-13) BUN (6-20) mg/dL Creatinine (0.6-1.2) mg/dL Estimated GFR (MDRD) (>89) Glucose (70-100) mg/dL POC Whole Bld Glucose 213 H (70 - 100) mg/dL Lactic Acid 1.6 (0.5-2.2) mmol/L Calcium (8.5-10.3) mg/dL Phosphorus (2.5-4.6) mg/dL Magnesium (1.7-2.8) mg/dL Total Bilirubin (0.2-1.0) mg/dL Direct Bilirubin (0.1-0.5) mg/dL AST (10-42) IU/L ALT (10-60) IU/L Alkaline Phosphatase (42-121) IU/L Troponin I High Sens (2.3-19.7) ng/L Total Protein (6.7-8.2) g/dL Albumin (3.2-5.5) g/dL Globulin (2.1-4.2) g/dL Nasal Screen MRSA (PCR) NEGATIVE (NEGATIVE) 05/18/19 05/18/19 05/18/19 Range/Units 16:11 15:33 15:33 WBC (4.8-10.8) x10^3/uL RBC (4.70-6.10) 10^6/uL Hgb (14.0-18.0) g/dL Hct (42.0-52.0) % MCV (80.0-94.0) fL MCH (27.0-31.0) pg MCHC (32.0-36.0) g/dL RDW (12.0-15.0) % Plt Count (130-450) 10^3/uL MPV (7.4-11.4) fL Neut # (Auto) (1.5-6.6) 10^3/uL Lymph # (Auto) (1.5-3.5) 10^3/uL Haines # (Auto) (0.0-1.0) 10^3/uL Eos # (Auto) (0.0-0.7) 10^3/uL Baso # (Auto) (0.0-0.1) 10^3/uL Absolute Nucleated RBC x10^3/uL Band Neuts % (Manual) Abnorm Lymph % (Manual) Nucleated RBC % /100WBC Neutrophils # (Manual) Lymphocytes # (Manual) Monocytes # (Manual) Eosinophils # (Manual) Basophils # (Manual) Differential Comment Manual Slide Review Platelet Estimate (NORMAL) Platelet Morphology (NORMAL) RBC Morph Micro Appear (NORMAL) PT (9.9-12.6) secs INR (0.8-1.2) Anti-Xa Level ( - 0.7) U/mL Bld Gas Analysis Time 1619 Sample Site A-LINE ABG pH 7.28 L (7.35-7.45) ABG pCO2 41 (34-45) mmHg ABG pO2 72 L (80-100) mmHg ABG HCO3 18.9 L (22.0-26.0) mmol/L ABG Total CO2 20.2 L (21.0-29.0) MMOL/L ABG O2 Saturation 92 L (94-98) % ABG Base Excess -7.4 L (-2.0-3.0) mmol/L Josue Test NOT APPLICABLE VBG pH (7.31-7.41) VBG pCO2 (41-51) mmHg VBG pO2 (25-47) mmHg VBG HCO3 (23-28) mmol/L VBG Total CO2 (24-29) mmol/L VBG O2 Saturation (60-80) % VBG Base Excess (-2 - +2) mmol/L Respiration Rate 14 b/min O2 Delivery Device VENTILATOR Vent Mode ASSIST/CONTROL FiO2 95.00 Tidal Volume 653 mL PEEP 5 cmH2O Pressure Support Vent 10 cmH2O Sodium (135-145) mmol/L Potassium (3.5-5.0) mmol/L Chloride (101-111) mmol/L Carbon Dioxide (21-32) mmol/L Anion Gap (6-13) BUN (6-20) mg/dL Creatinine (0.6-1.2) mg/dL Estimated GFR (MDRD) (>89) Glucose (70-100) mg/dL POC Whole Bld Glucose (70 - 100) mg/dL Lactic Acid 5.3 H* (0.5-2.2) mmol/L Calcium (8.5-10.3) mg/dL Phosphorus (2.5-4.6) mg/dL Magnesium (1.7-2.8) mg/dL Total Bilirubin (0.2-1.0) mg/dL Direct Bilirubin (0.1-0.5) mg/dL AST (10-42) IU/L ALT (10-60) IU/L Alkaline Phosphatase (42-121) IU/L Troponin I High Sens 19.8 H (2.3-19.7) ng/L Total Protein (6.7-8.2) g/dL Albumin (3.2-5.5) g/dL Globulin (2.1-4.2) g/dL Nasal Screen MRSA (PCR) (NEGATIVE) 05/18/19 05/18/19 05/18/19 Range/Units 15:33 15:33 15:33 WBC 16.7 H (4.8-10.8) x10^3/uL RBC 4.00 L (4.70-6.10) 10^6/uL Hgb 13.6 L (14.0-18.0) g/dL Hct 41.4 L (42.0-52.0) % MCV 103.5 H (80.0-94.0) fL MCH 34.0 H (27.0-31.0) pg MCHC 32.9 (32.0-36.0) g/dL RDW 12.9 (12.0-15.0) % Plt Count 197 (130-450) 10^3/uL MPV 9.9 (7.4-11.4) fL Neut # (Auto) 8.5 H (1.5-6.6) 10^3/uL Lymph # (Auto) 6.4 H (1.5-3.5) 10^3/uL Haines # (Auto) 1.0 (0.0-1.0) 10^3/uL Eos # (Auto) 0.2 (0.0-0.7) 10^3/uL Baso # (Auto) 0.1 (0.0-0.1) 10^3/uL Absolute Nucleated RBC 0.05 x10^3/uL Band Neuts % (Manual) Not Reportable Abnorm Lymph % (Manual) Not Reportable Nucleated RBC % 0.3 /100WBC Neutrophils # (Manual) Not Reportable Lymphocytes # (Manual) Not Reportable Monocytes # (Manual) Not Reportable Eosinophils # (Manual) Not Reportable Basophils # (Manual) Not Reportable Differential Comment MANUAL=AUTO DIFF Manual Slide Review Indicated Platelet Estimate NORMAL (130-450,000) (NORMAL) Platelet Morphology NORMAL APPEARANCE (NORMAL) RBC Morph Micro Appear 1+ ANISOCYTOSIS (NORMAL) PT 14.2 H (9.9-12.6) secs INR 1.3 H (0.8-1.2) Anti-Xa Level ( - 0.7) U/mL Bld Gas Analysis Time Sample Site ABG pH (7.35-7.45) ABG pCO2 (34-45) mmHg ABG pO2 (80-100) mmHg ABG HCO3 (22.0-26.0) mmol/L ABG Total CO2 (21.0-29.0) MMOL/L ABG O2 Saturation (94-98) % ABG Base Excess (-2.0-3.0) mmol/L Josue Test VBG pH (7.31-7.41) VBG pCO2 (41-51) mmHg VBG pO2 (25-47) mmHg VBG HCO3 (23-28) mmol/L VBG Total CO2 (24-29) mmol/L VBG O2 Saturation (60-80) % VBG Base Excess (-2 - +2) mmol/L Respiration Rate b/min O2 Delivery Device Vent Mode FiO2 Tidal Volume mL PEEP cmH2O Pressure Support Vent cmH2O Sodium 140 (135-145) mmol/L Potassium 3.3 L (3.5-5.0) mmol/L Chloride 106 (101-111) mmol/L Carbon Dioxide 23 (21-32) mmol/L Anion Gap 11.0 (6-13) BUN 12 (6-20) mg/dL Creatinine 0.9 (0.6-1.2) mg/dL Estimated GFR (MDRD) 84 L (>89) Glucose 162 H (70-100) mg/dL POC Whole Bld Glucose (70 - 100) mg/dL Lactic Acid (0.5-2.2) mmol/L Calcium 7.9 L (8.5-10.3) mg/dL Phosphorus (2.5-4.6) mg/dL Magnesium (1.7-2.8) mg/dL Total Bilirubin (0.2-1.0) mg/dL Direct Bilirubin (0.1-0.5) mg/dL AST (10-42) IU/L ALT (10-60) IU/L Alkaline Phosphatase (42-121) IU/L Troponin I High Sens (2.3-19.7) ng/L Total Protein (6.7-8.2) g/dL Albumin (3.2-5.5) g/dL Globulin (2.1-4.2) g/dL Nasal Screen MRSA (PCR) (NEGATIVE) - Other Results/Comments Other Results/Comments: Focused orthopedic examination only: Patient's right upper extremity has minimal ability to actively range shoulder he has slightly diminished light touch sensat ion broadly. He has palpable radial pulse with good coloration and equal warm throughout digits of hand.Right shoulder dressing clean dry and intact. Assessment/Plan - Problem List (1) Status post arthroscopy of right shoulder Impression: Patient underwent right shoulder arthroscopic subacromial decompression. Surge ry aborted secondary to cardiac event prior to completion of rotator cuff repair. Please see anesthesia and hospitalists documentation under separate cover for further details of cardiovascular status. In brief the patient had a negative CT angiogram. He had an echocardiogram yesterday showing slightly large right ventricle and slightly decreased ejection fraction. He has increasing troponins. Per discussion with hospitalist as well as outside dealer sales manager patient is planned to have transfer to higher level of cardiology care sometime today. He will be anticoagulated in the meantime. He will continue medical management per hospitalist and anesthesia. With regards to right upper extremity patient may use sling for comfort and protection. As he feels more comfortable he may perform active right upper extremity range of motion as tolerated. Recommend leaving dressing in place for 3 days and then transitioning to waterproof Band-Aids after 3 days. Recommend keeping wounds dry. Follow-up orthopedics 7 to 10 days for suture removal. Patient may follow-up or call sooner should problems or questions arise.
[2019-05-19] MEDS ORDERED: ATORVASTATIN 40 MG TABLET PO SCH (21:00)
[2019-05-20] MEDS ORDERED: ASPIRIN CHEW 81 MG TABLET PO SCH (09:00)
== END 2019-05-19 12:10 | disposition short-term general hospital (02) | DRG 281 ==
LOC: SDS 10:46 → ICU 16:46
PROVIDERS: ADMIT Internal Medicine; ATTEND Orthopaedic Surgery Sports Medicine
PROC: 0RNJ4ZZ Release Right Shoulder Joint, Percutaneous Endoscopic Approach (ICD-10-PCS; principal; 2019-05-18 12:15)
DX: I97.711 Intraoperative cardiac arrest during other surgery (principal); I21.4 Non-ST elevation (NSTEMI) myocardial infarction; J81.1 Chronic pulmonary edema; M75.121 Complete rotator cuff tear or rupture of right shoulder, not specified as traumatic; I95.2 Hypotension due to drugs; T40.4X5A Adverse effect of other synthetic narcotics, initial encounter; T41.295A Adverse effect of other general anesthetics, initial encounter; I48.0 Paroxysmal atrial fibrillation; S46.111A Strain of muscle, fascia and tendon of long head of biceps, right arm, initial encounter; M94.211 Chondromalacia, right shoulder; M75.51 Bursitis of right shoulder; E11.9 Type 2 diabetes mellitus without complications; I10 Essential (primary) hypertension; R94.31 Abnormal electrocardiogram [ECG] [EKG]; Y92.234 Operating room of hospital as the place of occurrence of the external cause; I07.1 Rheumatic tricuspid insufficiency; Y83.8 Other surgical procedures as the cause of abnormal reaction of the patient, or of later complication, without mention of misadventure at the time of the procedure; K76.0 Fatty (change of) liver, not elsewhere classified; E78.00 Pure hypercholesterolemia, unspecified; H54.7 Unspecified visual loss; G89.29 Other chronic pain; M54.9 Dorsalgia, unspecified; Z79.4 Long term (current) use of insulin; Z87.891 Personal history of nicotine dependence
CPT/HCPCS: 29822; 36415; 71275; 80048; 80076; 82803; 83605; 83735; 84100; 84484; 85025; 85027; 85520; 85610; 87150; 93005; 93306; 94002; 94003; A9270; J0131; J0282; J0690; J1650; J1815; J3010; J7120; Q9967; 71045; 74018; 94770

== ENCOUNTER 2019-06-22 14:35 | Outpatient (CLI) | payer MEDICARE, OTHER | END 2019-06-22 14:36 | disposition home or self-care (01) | LOC: LAB.S 14:35 | PROVIDERS: ATTEND Physician Assistant Medical | DX: Z53.9 Procedure and treatment not carried out, unspecified reason (principal) ==

== ENCOUNTER 2019-06-23 08:00 | Outpatient (CLI) | payer MEDICARE, OTHER ==
[2019-06-24 14:52] LABS: H. PYLORIS ANTIGEN STL NEGATIVE (Negative)
== END 2019-06-23 23:59 | disposition home or self-care (01) ==
LOC: LAB.R 08:00
PROVIDERS: ATTEND Physician Assistant Medical
DX: K52.9 Noninfective gastroenteritis and colitis, unspecified (principal)
CPT/HCPCS: 81599; 83630; 87015; 87045; 87046; 87177; 87209; 87272; 87338; 87493

== ENCOUNTER 2019-12-29 07:08 | Outpatient (CLI) | payer MEDICARE, OTHER ==
[2019-12-29 15:25] LABS: BASOPHILS % (AUTO) 0.4 %; EOSINOPHILS # (AUTO) 0.2 10^3/uL (0.0-0.7); EOSINOPHILS % (AUTO) 2.5 %; HGB - HEMOGLOBIN 16.9 g/dL (14.0-18.0); MEAN CORPUSCULAR HEMOGLOBIN 34.3 pg (27.0-31.0); MEAN CORPUSCULAR HGB CONC 33.3 g/dL (32.0-36.0); MEAN CORPUSCULAR VOLUME 102.8 fL (80.0-94.0); MEAN PLATELET VOLUME 10.8 fL (7.4-11.4); MONOCYTES # (AUTO) 0.7 10^3/uL (0.0-1.0); MONOCYTES % (AUTO) 8.6 %; NEUTROPHILS # (AUTO) 4.6 10^3/uL (1.5-6.6); NEUTROPHILS % (AUTO) 61.2 %; PLT - PLATELET COUNT 254 10^3/uL (130-450); RED BLOOD COUNT 4.93 10^6/uL (4.70-6.10); RED CELL DISTRIBUTION WIDTH 13.2 % (12.0-15.0); WHITE BLOOD COUNT 7.5 x10^3/uL (4.8-10.8)
[2019-12-29 15:50] LABS: ALBUMIN 4.5 g/dL (3.2-5.5); ALBUMIN/GLOBULIN RATIO 1.4 (1.0-2.2); ALKALINE PHOSPHATASE 49 IU/L (42-121); ALT ALANINE AMINOTRANSFERASE 56 IU/L (10-60); AST ASPARTATE AMINOTRANSFERASE 36 IU/L (10-42); BILIRUBIN,TOTAL 0.8 mg/dL (0.2-1.0); BUN - BLOOD UREA NITROGEN 23 mg/dL (6-20); CARBON DIOXIDE - CO2 30 mmol/L (21-32); CHLORIDE 101 mmol/L (101-111); CHOL/HDL RATIO 3.5 (<5.0); CHOLESTEROL 145 mg/dL; CREATININE 0.9 mg/dL (0.6-1.2); GLUCOSE 83 mg/dL (70-100); HDL CHOLESTEROL 41 mg/dL; LDL CHOLESTEROL,CALCULATED 89 mg/dL; LDL/HDL RATIO 2.2 (<3.6); SODIUM 138 mmol/L (135-145); TOTAL PROTEIN 7.7 g/dL (6.7-8.2); VLDL CHOLESTEROL 15 mg/dL
[2019-12-29 20:28] LABS: HEMOGLOBIN A1c% 6.3 % (4.27-6.07)
== END 2019-12-29 07:09 | disposition home or self-care (01) ==
LOC: LAB.S 07:08
PROVIDERS: ATTEND Registered Nurse
DX: E11.9 Type 2 diabetes mellitus without complications (principal); I10 Essential (primary) hypertension; I21.4 Non-ST elevation (NSTEMI) myocardial infarction
CPT/HCPCS: 36415; 80053; 80061; 83036; 84443; 85025; G0103; 83721; 84153

== ENCOUNTER 2020-06-27 08:22 | Outpatient (CLI) | payer MEDICARE, OTHER ==
[2020-06-27 15:13] LABS: CALCIUM 10.1 mg/dL (8.5-10.3); POTASSIUM 4.3 mmol/L (3.5-5.0)
[2020-06-27 15:27] LABS: CREATININE,URINE 116.3 mg/dL; MICROALBUMIN,URINE 1.4 mg/dL (0-300.0)
[2020-06-27 20:09] LABS: ESTIMATED AVERAGE GLUCOSE 143 mg/dL (70-100); HEMOGLOBIN A1c% 6.6 % (4.27-6.07)
== END 2020-06-27 08:23 | disposition home or self-care (01) ==
LOC: LAB.S 08:22
PROVIDERS: ATTEND Registered Nurse
DX: E78.5 Hyperlipidemia, unspecified (principal); E11.9 Type 2 diabetes mellitus without complications; I10 Essential (primary) hypertension
CPT/HCPCS: 36415; 80048; 82043; 82570; 83036

== ENCOUNTER 2020-12-11 10:46 | Outpatient (CLI) | payer MEDICARE, OTHER ==
[2020-12-11 14:25] LABS: BASOPHILS # (AUTO) 0.1 10^3/uL (0.0-0.1); BASOPHILS % (AUTO) 0.6 %; EOSINOPHILS # (AUTO) 0.2 10^3/uL (0.0-0.7); EOSINOPHILS % (AUTO) 2.2 %; HCT - HEMATOCRIT 49.9 % (42.0-52.0); HGB - HEMOGLOBIN 16.4 g/dL (14.0-18.0); LYMPHOCYTES # (AUTO) 1.9 10^3/uL (1.5-3.5); LYMPHOCYTES % (AUTO) 23.1 %; MEAN CORPUSCULAR HGB CONC 32.9 g/dL (32.0-36.0); MEAN CORPUSCULAR VOLUME 103.5 fL (80.0-94.0); MEAN PLATELET VOLUME 10.8 fL (7.4-11.4); MONOCYTES # (AUTO) 0.7 10^3/uL (0.0-1.0); MONOCYTES % (AUTO) 8.1 %; NEUTROPHILS # (AUTO) 5.5 10^3/uL (1.5-6.6); NEUTROPHILS % (AUTO) 65.6 %; PLT - PLATELET COUNT 255 10^3/uL (130-450); RED BLOOD COUNT 4.82 10^6/uL (4.70-6.10); RED CELL DISTRIBUTION WIDTH 13.2 % (12.0-15.0); WHITE BLOOD COUNT 8.4 x10^3/uL (4.8-10.8)
[2020-12-11 14:38] LABS: ALBUMIN 4.3 g/dL (3.2-5.5); ALBUMIN/GLOBULIN RATIO 1.3 (1.0-2.2); ALKALINE PHOSPHATASE 51 IU/L (42-121); ALT ALANINE AMINOTRANSFERASE 52 IU/L (10-60); AST ASPARTATE AMINOTRANSFERASE 30 IU/L (10-42); BILIRUBIN,TOTAL 0.8 mg/dL (0.2-1.0); BUN - BLOOD UREA NITROGEN 17 mg/dL (6-20); CALCIUM 9.9 mg/dL (8.5-10.3); CARBON DIOXIDE - CO2 27 mmol/L (21-32); CHLORIDE 101 mmol/L (101-111); CHOL/HDL RATIO 3.8 (<5.0); CHOLESTEROL 167 mg/dL; CREATININE 0.9 mg/dL (0.6-1.2); GFR - MDRD 84 (>89); GLUCOSE 120 mg/dL (70-100); HDL CHOLESTEROL 44 mg/dL; LDL CHOLESTEROL,CALCULATED 97 mg/dL; LDL/HDL RATIO 2.2 (<3.6); POTASSIUM 4.4 mmol/L (3.5-5.0); SODIUM 139 mmol/L (135-145); TOTAL PROTEIN 7.7 g/dL (6.7-8.2); TRIGLYCERIDES 131 mg/dL; VLDL CHOLESTEROL 26 mg/dL
[2020-12-11 14:45] LABS: THYROID STIMULATING HORMONE 0.74 uIU/mL (0.34-5.60)
== END 2020-12-11 10:47 | disposition home or self-care (01) ==
LOC: LAB.S 10:46
PROVIDERS: ATTEND Registered Nurse
DX: E11.9 Type 2 diabetes mellitus without complications (principal); I10 Essential (primary) hypertension; E78.5 Hyperlipidemia, unspecified
CPT/HCPCS: 36415; 80053; 80061; 83721; 84153; 84443; 85025

== ENCOUNTER 2021-01-07 10:47 | Outpatient (CLI) | payer MEDICARE, OTHER ==
[2021-01-07 14:15] LABS: ESTIMATED AVERAGE GLUCOSE 137 mg/dL (70-100); HEMOGLOBIN A1c% 6.4 % (4.27-6.07)
== END 2021-01-07 10:48 | disposition home or self-care (01) ==
LOC: LAB.S 10:47
PROVIDERS: ATTEND Registered Nurse
DX: E11.9 Type 2 diabetes mellitus without complications (principal); Z79.899 Other long term (current) drug therapy; Z12.5 Encounter for screening for malignant neoplasm of prostate
CPT/HCPCS: 36415; 83036; G0103; 84153

== ENCOUNTER 2021-06-27 07:05 | Outpatient (CLI) | payer MEDICARE, OTHER ==
[2021-06-27 15:27] LABS: CALCIUM 9.7 mg/dL (8.5-10.3); POTASSIUM 4.4 mmol/L (3.5-5.0)
[2021-06-27 15:35] LABS: CREATININE,URINE 146.4 mg/dL; MICROALBUM/CREATININE RATIO,UR 6.1 ug/mg (<30.0); MICROALBUMIN,URINE 0.9 mg/dL (0-300.0)
[2021-06-27 20:26] LABS: ESTIMATED AVERAGE GLUCOSE 146 mg/dL (70-100); HEMOGLOBIN A1c% 6.7 % (4.27-6.07)
== END 2021-06-27 07:06 | disposition home or self-care (01) ==
LOC: LAB.S 07:05
PROVIDERS: ATTEND Registered Nurse
DX: E11.9 Type 2 diabetes mellitus without complications (principal)
CPT/HCPCS: 36415; 80048; 82043; 82570; 83036

== ENCOUNTER 2021-07-15 15:02 | Outpatient (CLI) | payer MEDICARE, OTHER ==
--- NOTE | 2021-07-15 18:11 | Ultrasound Report ---
PROCEDURE: Retroperitoneal INDICATIONS: RIGHT FLANK PAIN TECHNIQUE: Real-time scanning was performed of the retroperitoneal organs, with image documentation. COMPARISON: None. FINDINGS: Kidneys: Kidneys are normal in size. Right kidney measures 13.1 cm long; left kidney measures 14.7 cm long. Right renal cortical thickness is 1.6 cm; left renal cortical thickness is 1.6 cm. No jeanna d masses or hydronephrosis. Small bilateral nonobstructing renal calculi are noted ranging in size fr om 4-8 mm. Pancreas: Visualized portions of the pancreas are sonographically normal. Bladder: Pre-void bladder volume is 325 mL. Post-void residual is 81 mL. Pre-void images demonstra te no intraluminal masses or stones. On pre-void images, left ureteral jet is noted with color Doppl er interrogation. (Of note, ureteral jets may not be detectable in up to 25% of cases due to insuffi cient differences in specific gravity between ureteral and bladder urine). Miscellaneous: No free pelvic fluid. Mildly echogenic liver incidentally noted. IMPRESSION: 1. Small bilateral nonobstructing renal stones. 2. No hydronephrosis. 3. Incidentally noted hepatic steatosis. Reviewed by: Iveth Ponce MD, PhD on 07/15/2021 6:10 PM PDT Approved by: Iveth Ponce MD, PhD on 07/15/2021 6:10 PM PDT Station ID: [id number]
== END 2021-07-15 15:03 | disposition home or self-care (01) ==
LOC: DI 15:02
PROVIDERS: ATTEND Registered Nurse
DX: R10.9 Unspecified abdominal pain (principal); N20.0 Calculus of kidney

== ENCOUNTER 2021-10-24 08:00 | Outpatient (CLI) | payer MEDICARE, OTHER ==
--- NOTE | 2021-10-24 08:50 | XRAY Report ---
PROCEDURE: Chest 2 View X-Ray INDICATIONS: COUGH TECHNIQUE: 2 view(s) of the chest. COMPARISON: None. FINDINGS: Surgical changes and devices: None. Lungs and pleura: No pleural effusions or pneumothorax. Lungs are clear. Mediastinum: Mediastinal contours are normal. Heart size is normal. Bones and chest wall: No suspicious bony abnormalities. Soft tissues appear unremarkable. IMPRESSION: No acute cardiopulmonary abnormality Reviewed by: Jason Connors on 10/24/2021 8:49 AM PDT Approved by: Jason Connors on 10/24/2021 8:49 AM PDT Station ID: [id number]
== END 2021-10-24 23:59 | disposition home or self-care (01) ==
LOC: DI.S 08:00
PROVIDERS: ATTEND Registered Nurse
DX: R05.9 Cough, unspecified (principal); R06.2 Wheezing; R06.02 Shortness of breath

== ENCOUNTER 2022-01-17 06:25 | Day surgery (SDC) | payer MEDICARE, OTHER ==
[2022-01-17] MEDS ORDERED: LACTATED RINGERS 1,000 ML IV ONE (06:49)
--- NOTE | 2022-01-17 07:18 | ANESTHESIA ---
Pre-Anesthesia VS, & Labs - Diagnosis family hx colon cancer - Procedure colonoscopy Vital Signs: Temp Pulse Resp BP Pulse Ox O2 Flow Rate 36.7 C 87 15 130/83 H 97 0 01/17/22 06:50 01/17/22 06:50 01/17/22 06:50 01/17/22 06:50 01/17/22 06:50 01/17/22 06:50 Height: 5 ft 10 in Weight (kg): 94.1 kg Body Mass Index: 29.7 BMI Classification: Overweight - NPO >8 hours - Lab Results Lab results reviewed: No Home Medications and Allergies Home Medications: Ambulatory Orders Acetaminophen [Tylenol] 650 mg PO Q6H PRN 01/13/22 Fluticasone [Flonase] 1 sprays RAPHAEL BID PRN 01/13/22 Magnesium Oxide 500 mg PO QPM 01/13/22 Insulin Glargine [Lantus Solostar] 40 - 42 unit SQ BID 05/09/19 Insulin Lispro [Humalog Kwikpen U-100] 25 unit SUBQ TIDWM 05/09/19 Liraglutide [Victoza 2-Sky] 1.8 mg SQ DAILY 05/09/19 Metformin HCl 1,000 mg PO BID 05/09/19 Potassium Citrate [Potassium Citrate ER] 10 meq PO BID 05/09/19 Simvastatin 10 mg PO QPM 05/09/19 Telmisartan 40 mg PO QPM 05/09/19 Valacyclovir HCl [Valacyclovir] 1,000 mg PO DAILY 05/09/19 Acetaminophen [Tylenol] 650 mg PO Q6H PRN 01/13/22 Fluticasone [Flonase] 1 sprays RAPHAEL BID PRN 01/13/22 Magnesium Oxide 500 mg PO QPM 01/13/22 Allergies/Adverse Reactions: Allergies Allergy/AdvReac Type Severity Reaction Status Date / Time ampicillin Allergy Rash Verified 01/17/22 06:57 Anes History & Medical History - Anesthetic History Anesthesia Complications: reports: No previous complications Family history of Anesthesia Complications: Denies Family history of Malignant Hyperthermia: Denies - Medical History Cardiovascular: reports: Hypertension, High cholesterol, Other Pulmonary: reports: None Gastrointestinal: reports: None Urinary: reports: Kidney stones Neuro: reports: None Musculoskeletal: reports: Chronic back pain Endocrine/Autoimmune: reports: Type 2 diabetes Blood Disorders: reports: None Skin: reports: None Smoking Status: Current every day smoker - Surgical History General: reports: Colonoscopy, Other Urologic: reports: Ureterolithotomy (stones) Exam General: Alert, Oriented x3, Cooperative Dental: WNL Mouth Openin Fingerbreadth Neck Mobility: Normal Mallampati classification: II Thyromental Distance: 4-6 cm Respiratory: Lungs clear, Normal breath sounds, No respiratory distress Cardiovascular: Regular rate Neurological: Normal speech Mental/Cognitive Status: Alert/Oriented X3, Normal for patient Cognitive Status: Within normal limits Plan Anesthesia Type: Total IV Consent for Procedure(s) Verified and Reviewed: Yes Code Status: Attempt Resuscitation ASA classification: 3-Severe systemic disease Is this case an emergency?: No
[2022-01-17] MEDS ORDERED: LIDOCAINE-MPF 2% 5 ML VIAL ONE (07:23)
[2022-01-17] MEDS ORDERED: PROPOFOL 500 MG/50 ML 500 MG/50 ML VIAL ONE (07:23)
[2022-01-17] MEDS ORDERED: PROPOFOL 200 MG/20 ML VIAL IVP ONE (07:23)
--- NOTE | 2022-01-17 07:28 | HISTORY & PHYSICAL EXAMINATION ---
Chief Complaint - Chief Complaint Chief Complaint: here for colon cancer screening History of Present Illness - History Obtained From History obtained from: yes Exam Limitations: none - History of Present Illness HPI Comment/Other: here for colon cancer screening. normal colonoscopy 2014. father had colon cancer in his 80's no problems. denies heart problem. normal cardiac workup at [facility], [place] History - Past Medical History Cardiovascular: reports: Hypertension, High cholesterol, Other Respiratory: reports: None Neuro: reports: None Endocrine/Autoimmune: reports: Type 2 diabetes GI: reports: None : reports: Kidney stones HEENT: reports: Chronic vision loss, Chronic hearing loss, Other Psych: reports: Claustrophobia Musculoskeletal: reports: Chronic back pain Derm: reports: None MRSA Hx?: No - Past Surgical History General: reports: Colonoscopy, Other - Family & Social History Family History Comment/Other: Unable to obtain at this moment as patient is intubated. Social History Notes: Unable to obtain at this moment as patient is intubated. Meds/Allgy - Home Medications Home Medications: Ambulatory Orders Medication Instructions Recorded Confirmed Insulin Glargine [Lantus Solostar] 40 - 42 unit SQ BID 05/09/19 01/13/22 Insulin Lispro [Humalog Kwikpen 25 unit SUBQ TIDWM 05/09/19 01/13/22 U-100] Liraglutide [Victoza 2-Sky] 1.8 mg SQ DAILY 05/09/19 01/13/22 Metformin HCl 1,000 mg PO BID 05/09/19 01/13/22 Potassium Citrate [Potassium 10 meq PO BID 05/09/19 01/13/22 Citrate ER] Simvastatin 10 mg PO QPM 05/09/19 01/13/22 Telmisartan 40 mg PO QPM 05/09/19 01/13/22 Valacyclovir HCl [Valacyclovir] 1,000 mg PO DAILY 05/09/19 01/13/22 Acetaminophen [Tylenol] 650 mg PO Q6H PRN 01/13/22 01/13/22 Fluticasone [Flonase] 1 sprays RAPHAEL BID PRN 01/13/22 01/13/22 Magnesium Oxide 500 mg PO QPM 01/13/22 01/13/22 - Allergies Allergies/Adverse Reactions: Allergies Allergy/AdvReac Type Severity Reaction Status Date / Time ampicillin Allergy Rash Verified 01/17/22 06:57 Review of Systems - Other Findings Other Findings: 10 pt ros as above otherwise unremarkable Exam - Vital Signs Vital Signs: Vital Signs x48h Temp Pulse Resp BP Pulse Ox O2 Flow Rate 01/17/22 06:50 36.7 C 87 15 130/83 H 97 0 - Physical Exam General Appearance: positive: No acute distress, Alert Eyes Bilateral: positive: PERRL, EOMI, No scleral icterus ENT: positive: No signs of dehydration Neck: positive: No JVD Respiratory: positive: No respiratory distress, Breath sounds nml Cardiovascular: positive: Regular rate & rhythm Abdomen: positive: Non-tender, No distention Neurologic/Psychiatric: positive: Oriented x3 Conclusion/Plan - Problem List (1) Colon cancer screening Conclusion/Plan: parq held and consent obtained - Lab Results Lab results reviewed: No
[2022-01-17] MEDS ORDERED: LACTATED RINGERS 700 ML IV ONE (08:01)
[2022-01-17] MEDS ORDERED: ePHEDrine 50 MG/ML VIAL IVP ONE (08:12)
[2022-01-17 08:51] VITALS: BP 125/77
--- NOTE | 2022-01-17 09:07 | ANESTHESIA POST OP EVALUATION ---
Anesthesia Post Eval - Post Anesthesia Eval Vitals: Last Vital Signs Temp 36.4 C L 01/17/22 08:46 Pulse 84 01/17/22 08:46 Resp 14 01/17/22 08:46 BP 125/77 01/17/22 08:46 Pulse Ox 97 01/17/22 08:46 O2 Flow Rate 0 01/17/22 06:50 CV Function Including HR & BP: Stable Pain Control: Satisfactory Nausea & Vomiting: Negative Mental Status: Baseline Respiratory Status: Airway Patent Hydration Status: Satisfactory Anesthesia Complications: None
== END 2022-01-17 06:26 | disposition home or self-care (01) ==
LOC: SDS 06:25
PROVIDERS: ATTEND Surgery
DX: Z12.11 Encounter for screening for malignant neoplasm of colon (principal); I10 Essential (primary) hypertension; E11.9 Type 2 diabetes mellitus without complications; K57.30 Diverticulosis of large intestine without perforation or abscess without bleeding; Z79.4 Long term (current) use of insulin; Z79.84 Long term (current) use of oral hypoglycemic drugs; Z80.0 Family history of malignant neoplasm of digestive organs
CPT/HCPCS: G0121; J7120

== ENCOUNTER 2022-09-29 07:24 | Outpatient (CLI) | payer MEDICARE, OTHER ==
[2022-09-29 15:08] LABS: ESTIMATED AVERAGE GLUCOSE 146 mg/dL (70-100); HEMOGLOBIN A1c% 6.7 % (4.27-6.07)
[2022-09-29 15:53] LABS: ALBUMIN 4.3 g/dL (3.2-5.5); ALBUMIN/GLOBULIN RATIO 1.4 (1.0-2.2); BILIRUBIN,TOTAL 0.6 mg/dL (0.2-1.0); CALCIUM 9.3 mg/dL (8.5-10.3); CREATININE 1.1 mg/dL (0.6-1.2); POTASSIUM 4.6 mmol/L (3.5-5.0); TOTAL PROTEIN 7.4 g/dL (6.7-8.2)
== END 2022-09-29 07:25 | disposition home or self-care (01) ==
LOC: LAB.S 07:24
PROVIDERS: ATTEND Registered Nurse
DX: E11.39 Type 2 diabetes mellitus with other diabetic ophthalmic complication (principal)
CPT/HCPCS: 36415; 80053; 83036

== ENCOUNTER 2022-12-25 12:05 | Outpatient (CLI) | payer MEDICARE, OTHER | END 2022-12-25 12:06 | disposition home or self-care (01) | LOC: DI 12:05 | PROVIDERS: ATTEND Registered Nurse | DX: R42 Dizziness and giddiness (principal); R53.83 Other fatigue; I21.4 Non-ST elevation (NSTEMI) myocardial infarction; Z86.74 Personal history of sudden cardiac arrest; I10 Essential (primary) hypertension | CPT/HCPCS: 93306 ==

== ENCOUNTER 2023-03-27 08:00 | Outpatient (CLI) | payer MEDICARE, OTHER | END 2023-03-27 23:59 | disposition home or self-care (01) | LOC: LAB.S 08:00 | PROVIDERS: ATTEND Physician Assistant Medical | DX: U07.1 COVID-19 (principal) ==

== ENCOUNTER 2023-05-05 07:05 | Outpatient (CLI) | payer MEDICARE, OTHER ==
[2023-05-05 15:29] LABS: CALCIUM 10.2 mg/dL (8.5-10.3); POTASSIUM 4.7 mmol/L (3.5-4.5)
[2023-05-05 15:48] LABS: CREATININE,URINE 80.2 mg/dL; MICROALBUM/CREATININE RATIO,UR 64.8 ug/mg (<30.0); MICROALBUMIN,URINE 5.2 mg/dL
[2023-05-05 21:20] LABS: ESTIMATED AVERAGE GLUCOSE 177 mg/dL (70-100); HEMOGLOBIN A1c% 7.8 % (4.27-6.07)
== END 2023-05-05 07:06 | disposition home or self-care (01) ==
LOC: LAB.S 07:05
PROVIDERS: ATTEND Registered Nurse
DX: I25.810 Atherosclerosis of coronary artery bypass graft(s) without angina pectoris (principal); E11.9 Type 2 diabetes mellitus without complications
CPT/HCPCS: 36415; 80048; 82043; 82570; 83036

== ENCOUNTER 2023-06-02 08:02 | Outpatient (CLI) | payer MEDICARE, OTHER | END 2023-06-02 08:03 | disposition home or self-care (01) | LOC: LAB.S 08:02 | PROVIDERS: ATTEND Registered Nurse | DX: E87.5 Hyperkalemia (principal) | CPT/HCPCS: 36415; 84132 ==

== ENCOUNTER 2023-09-28 07:08 | Outpatient (CLI) | payer MEDICARE, OTHER ==
[2023-09-28 15:49] LABS: CREATININE,URINE 57.7 mg/dL; MICROALBUM/CREATININE RATIO,UR 55.5 ug/mg (<30.0); MICROALBUMIN,URINE 3.2 mg/dL
[2023-09-28 15:52] LABS: BUN - BLOOD UREA NITROGEN 17 mg/dL (6-20); CALCIUM 10.1 mg/dL (8.5-10.3); CARBON DIOXIDE - CO2 25 mmol/L (21-32); CHLORIDE 106 mmol/L (101-111); CHOL/HDL RATIO 2.6 (<5.0); CHOLESTEROL 97 mg/dL; CREATININE 0.8 mg/dL (0.6-1.3); GFR - MDRD 95 (>89); GLUCOSE 116 mg/dL (74-104); HDL CHOLESTEROL 37 mg/dL; LDL CHOLESTEROL,CALCULATED 47 mg/dL; LDL/HDL RATIO 1.3 (<3.6); POTASSIUM 4.7 mmol/L (3.5-4.5); SODIUM 140 mmol/L (135-145); TRIGLYCERIDES 66 mg/dL (48-352); VLDL CHOLESTEROL 13 mg/dL
[2023-09-28 19:18] LABS: ESTIMATED AVERAGE GLUCOSE 154 mg/dL (70-100)
== END 2023-09-28 07:09 | disposition home or self-care (01) ==
LOC: LAB.S 07:08
PROVIDERS: ATTEND Registered Nurse
DX: E78.5 Hyperlipidemia, unspecified (principal); E11.9 Type 2 diabetes mellitus without complications
CPT/HCPCS: 36415; 80048; 80061; 82043; 82570; 83036; 83721

== ENCOUNTER 2023-12-21 07:03 | Outpatient (CLI) | payer MEDICARE, OTHER ==
[2023-12-21 16:27] LABS: CALCIUM 9.7 mg/dL (8.5-10.3); POTASSIUM 4.6 mmol/L (3.5-4.5)
[2023-12-21 17:52] LABS: ESTIMATED AVERAGE GLUCOSE 148 mg/dL (70-100); HEMOGLOBIN A1c% 6.8 % (4.27-6.07)
== END 2023-12-21 07:04 | disposition home or self-care (01) ==
LOC: LAB.S 07:03
PROVIDERS: ATTEND Registered Nurse
DX: E11.9 Type 2 diabetes mellitus without complications (principal)
CPT/HCPCS: 36415; 80048; 83036